=== PATIENT | female | born 1935 | race Caucasian/White ===

== ENCOUNTER 2018-03-17 11:01 | Outpatient (CLI) | payer MEDICARE | END 2018-03-17 11:02 | disposition home or self-care (01) | LOC: BICMAMMO 11:01 | PROVIDERS: ATTEND Family Medicine | DX: Z12.31 Encounter for screening mammogram for malignant neoplasm of breast (principal); Z85.3 Personal history of malignant neoplasm of breast; Z80.3 Family history of malignant neoplasm of breast | CPT/HCPCS: 77063; 77067 ==

== ENCOUNTER 2018-10-15 10:29 | Inpatient (IN) | payer MEDICARE ==
[2018-10-15 11:09] LABS: #Basophils 0.2 thou/uL (0.0-0.2); #Eosinphils 0.2 thou/uL (0.0-0.7); #Monocytes 0.3 thou/uL (0.11-0.59); #Neutrophils 9.1 thou/uL (1.40-6.50); %Basophils 2.3 % (0.0-1.0); %Eosinophils 1.5 % (0.0-10.0); %Lymphocytes 8.9 % (21.0-51.0); %Monocytes 2.9 % (0.0-10.0); %Neutrophils 84.4 % (42.0-75.0); Hemoglobin 14.1 g/dL (12.0-16.0); Mean Corpuscular HGB CONC 31.7 g/dL (32.0-36.0); Mean Corpuscular Hemoglobin 30.1 pg (27.0-31.0); Mean Corpuscular Volume 94.9 fL (78.0-98.0); Mean Platelet Volume 8.5 fL (7.4-10.4); Platelet Count 317 thou/uL (130-400); RBC Distribution Width 19.5 % (11.5-14.5); Red Blood Cell (RBC) Count 4.68 mill/uL (4.20-5.40); White Blood Cell (WBC) Count 10.7 thou/uL (4.8-10.8)
--- NOTE | 2018-10-15 11:31 | RAD ---
PORTABLE CHEST 1 VIEW: Date: 10/15/18 Time: 1001 hours HISTORY: Weakness, altered mental status. FINDINGS/IMPRESSION: Comparison made with exam of 01/29/15. The heart is enlarged. There is mild pulmonary vascular congestion. No lobar consolidation, pneumotho races, or large effusions are seen. There are surgical clips in the right lower chest and the left ax illa/lateral chest wall. POS: OFF
[2018-10-15 11:33] LABS: ALT (SGPT) 13 U/L (8-55); AST (SGOT) 22 U/L (5-34); Alkaline Phosphatase 112 U/L (40-150); Anion Gap 15 mmol/L (10-20); BUN (Urea Nitrogen) 14 mg/dL (9.8-20.1); Bilirubin, Total 1.2 mg/dL (0.2-1.2); CK (CPK) 66 U/L (29-168); Calc. Creatinine Clearance 0 mL/min (70-130); Calcium 9.2 mg/dL (7.8-10.44); Carbon Dioxide 28 mmol/L (23-31); Chloride 100 mmol/L (98-107); Estimated GFR-MDRD 73; Globulin 3.2 g/dL (2.4-3.5); Glucose 137 mg/dL (83-110); Lipase 18 U/L (8-78); Potassium 4.7 mmol/L (3.5-5.1); Protein, Total 7.2 g/dL (6.0-8.3); Sodium 138 mmol/L (136-145)
--- NOTE | 2018-10-15 12:08 | CT ---
CT BRAIN WITHOUT CONTRAST: Date: 10/15/18 HISTORY: Generalized weakness, altered mental status. FINDINGS: Comparison made with exam of 01/29/15. Changes of cortical atrophy, chronic small vessel ischemic disease, and encephalomalacia due to old l arge left MCA infarction are again seen. The ventricular size is stable and the basilar cisterns are patent. No evidence of acute infarct, hemorrhage, midline shift, or abnormal extra-axial fluid collections ar e seen. The bony calvarium is intact. The visualized paranasal sinuses and mastoid air cells are well aerated. IMPRESSION: No CT evidence of acute intracranial process. POS: OFF
[2018-10-15 12:27] LABS: Bilirubin Small (Negative); Blood, Urine Negative (Negative); Clarity CLOUDY (Clear); Glucose, Urine (Dipstick) Negative (Negative); Leukocyte Moderate (Negative); Nitrite Negative (Negative); Protein, Urine (Dipstick) Trace mg/dL (Neg-Trace); Specific Gravity, Urine 1.022 (1.002-1.036)
[2018-10-15 12:29] LABS: Bacteria/HPF 2+ HPF (None Seen); Hyaline Casts/LPF 4-6 HYALINE CAST LPF (0-3 Hyaline); Pathc Cast-AUWi Flag 0.95 (0-2.49)
[2018-10-15 12:45] LABS: Crystals/HPF None Seen HPF (Negative); RBC/HPF 0-3 HPF (0-3)
[2018-10-15] MEDS ORDERED: cefTRIAXone\\ROCEPHIN 1 GM VIAL ONE (14:13)
[2018-10-15] MEDS ORDERED: Bisacodyl 5 MG TAB PO PRN (16:07)
[2018-10-15] MEDS ORDERED: Acetaminophen 650 MG Suppository PR PRN (16:07)
--- NOTE | 2018-10-15 17:12 | HP ---
PRIMARY CARE PROVIDER: Terrell Mcmanus DO. CHIEF COMPLAINT: Altered mental status. HISTORY OF PRESENT ILLNESS: Ms. Valdes is a pleasant 82-year-old lady, who was seen at [facility] on October 15, 2018. She is a poor historian. Most of the time, she kept saying no to every question. She does report having pain in the lower abdomen that has been going on for a few days, but is unable to describe it further. She also reportedly had nausea and vomiting. She reportedly vomited and slumped down to the floor after losing consciousness this morning. The patient reports that she did not fall and was able to lower herself to the floor. As mentioned earlier, the patient is a poor historian. Collateral history was obtained from review of medical records and discussion with emergency room physician. REVIEW OF SYSTEMS: Could not be completed because of the patient's confused status. PAST MEDICAL HISTORY: Dyslipidemia, breast cancer, stroke, and hypertension. PAST SURGICAL HISTORY: Right lumpectomy. SOCIAL HISTORY: No history of tobacco use, alcohol use, or recreational drug use. CODE STATUS: Could not be elicited. FAMILY HISTORY: Could not obtain. ALLERGIES: ESTROGENS, NOVOCAIN, PENICILLIN, PROCAINE, AND SHELLFISH CONTAINING PRODUCTS. CURRENT MEDICATIONS: 1. Metoprolol succinate 75 mg daily. 2. Fluoxetine 20 mg daily. 3. Lipitor 20 mg daily. 4. Warfarin as directed. 5. Tramadol as needed. PHYSICAL EXAMINATION: GENERAL: On examination, Ms. Valdes is awake and alert, in mild distress. VITAL SIGNS: Blood pressure is 126/102, pulse 116, respiratory rate 20, and oxygen saturation 96% on room air. She is afebrile. EYES: No scleral icterus. No conjunctival pallor. ENT: Moist mucosal membranes. No oropharyngeal erythema or exudates. NECK: Supple, nontender, trachea is midline. RESPIRATORY: Accessory muscles of breathing are not active. Chest wall movements are symmetric bilaterally. Lungs are clear to auscultation without wheeze, rhonchi, or crepitations. CARDIOVASCULAR: S1 and S2 are heard, irregular and tachycardic. Peripheral pulses palpable. No carotid bruit. No pericardial rub. ABDOMEN: Soft, nontender, bowel sounds heard. No hepatomegaly. No splenomegaly. NEUROLOGIC: Full neurologic examination was not possible secondary to the patient's noncooperation. Pupils are equal and reactive to light. No facial droop. The patient is moving all 4 extremities. Deep tendon reflexes are 2+, plantar reflexes downgoing bilaterally. MUSCULOSKELETAL: The patient is moving all 4 extremities. SKIN: No rashes or subcutaneous nodules. LYMPHATIC: No cervical lymphadenopathy. PSYCHIATRIC: Unable to assess mood, affect or orientation to person, place, or time. LABORATORY DATA: Ms. Valdes's labs and investigations were reviewed. I reviewed her electrocardiogram, which shows atrial fibrillation with rapid ventricular response, no ST changes to suggest an acute coronary syndrome. I also reviewed her chest x-ray, which does not show any pulmonary infiltrates. Noncontrast CT scan of the brain did not show any acute intracranial process. She has normal white count, normal hemoglobin, normal platelet count, unremarkable comprehensive metabolic profile, and normal troponin-I. Urinalysis is positive for bilirubin and moderate amount of leukocyte esterase. ASSESSMENT AND PLAN: Ms. Valdes is a pleasant 82-year-old lady, who was seen at [facility] on October 15, 2018. Her problem list includes: 1. Acute metabolic encephalopathy: Ms. Valdes is presenting with acute metabolic encephalopathy, likely secondary to urinary tract infection. However, stroke cannot be ruled out at this time, especially given her difficulty with speech. She will be admitted to the hospital for further management. 2. Urinary tract infection: She has received a dose of ceftriaxone in the emergency room, which I will continue. We will await urine cultures. 3. Atrial fibrillation: The patient is in atrial fibrillation. It is unclear if she has a past medical history of atrial fibrillation. We will obtain records from primary care provider to look into the same. INR has not been checked today. We will check INR and manage warfarin. 4. Dyslipidemia: We will continue statin. 5. We will also initiate stroke workup including MRI of the brain, 2D echocardiogram and carotid Dopplers. We will consult Neurology Service for opinion and help with management. 6. Hypertension: We will resume home medications, monitor vital signs and titrate antihypertensives as needed. Many thanks for allowing me to participate in your patient's care. Please feel free to contact me with any questions or concerns. LEVEL OF RISK: High. LEVEL OF COMPLEXITY: High. Job ID: [id number] MTDD
--- NOTE | 2018-10-15 18:01 | ULT ---
CAROTID DUPLEX ULTRASOUND: 10/15/18 INDICATION: History of stroke. FINDINGS: There are mild atherosclerotic calcifications seen diffusely within the common carotid arteries and p roximal internal carotid arteries. The velocities within the common carotid and internal carotid arteries were hemodynamically within n ormal limits. Peak systolic velocity within the right CCA was 72 cm/s and left CCA 64.1 cm/s. Peak systolic velocity within the right ICA was 52.3 cm/s and left was 52.5 cm/s. Right IC/CC ratio is 0 .73 and left is 0.82. Antegrade flow is seen within both vertebral arteries. IMPRESSION: 1. No hemodynamically significant stenosis demonstrated. 2. Mild partially calcified atherosclerotic plaque seen involving the internal carotid arteries and common carotid arteries. POS: STEPHANY
[2018-10-15 18:05] LABS: INR-International Normal Ratio 1.9; Prothrombin Time 22.2 SEC (12.0-14.7)
[2018-10-15 22:51] VITALS: BMI 24.2
[2018-10-16 05:29] LABS: #Basophils 0.2 thou/uL (0.0-0.2); #Eosinphils 0.2 thou/uL (0.0-0.7); #Lymphocytes 1.5 thou/uL (1.20-3.40); #Monocytes 0.5 thou/uL (0.11-0.59); #Neutrophils 8.5 thou/uL (1.40-6.50); %Basophils 2.2 % (0.0-1.0); %Eosinophils 1.4 % (0.0-10.0); %Lymphocytes 13.8 % (21.0-51.0); %Monocytes 4.7 % (0.0-10.0); %Neutrophils 77.8 % (42.0-75.0); Hemoglobin 13.2 g/dL (12.0-16.0); Mean Corpuscular HGB CONC 31.8 g/dL (32.0-36.0); Mean Corpuscular Hemoglobin 30.7 pg (27.0-31.0); Mean Corpuscular Volume 96.5 fL (78.0-98.0); Mean Platelet Volume 8.5 fL (7.4-10.4); Platelet Count 286 thou/uL (130-400); RBC Distribution Width 19.4 % (11.5-14.5); Red Blood Cell (RBC) Count 4.29 mill/uL (4.20-5.40); White Blood Cell (WBC) Count 10.9 thou/uL (4.8-10.8)
[2018-10-16 05:33] LABS: Prothrombin Time 22.5 SEC (12.0-14.7)
[2018-10-16 05:48] LABS: Anion Gap 12 mmol/L (10-20); BUN (Urea Nitrogen) 11 mg/dL (9.8-20.1); Calc. Creatinine Clearance 58 mL/min (70-130); Calcium 9.1 mg/dL (7.8-10.44); Carbon Dioxide 27 mmol/L (23-31); Cardiac Risk 3.9 (Less than 4.5); Chloride 100 mmol/L (98-107); Cholesterol 159 mg/dl (< 200 Desired); Estimated GFR-MDRD 76; Glucose 97 mg/dL (83-110); HDL Cholesterol 41 mg/dL (>60 Neg Risk); LDL Cholesterol, Calculated 99 mg/dL; Potassium 4.1 mmol/L (3.5-5.1); Sodium 135 mmol/L (136-145); Triglycerides 97 mg/dL (Less than 150)
[2018-10-16] MEDS ORDERED: Enoxaparin Sodium 40 MG/0.4 ML SYRINGE SC SCH (09:00)
[2018-10-16] MEDS: Aspirin 81 mg Enteric Coated Tablet PO SCH (09:15)
--- NOTE | 2018-10-16 12:50 | PDOC.PN ---
- Subjective Encounter Start Date: 10/16/18 Encounter Start Time: 07:40 Pt seen for followup re: acute metabolic encephalopathy. Unable to answer questions, could not complete ROS. - Objective MAR Reviewed: Yes Vital Signs & Weight: Vital Signs (12 hours) Temp Pulse Pulse Pulse Pulse Resp BP 10/16/18 12:00 98.8 F 98 20 10/16/18 09:45 99 106 H 101 H 86/53 L 10/16/18 08:10 10/16/18 07:40 97.5 F L 93 18 10/16/18 03:46 97.9 F 100 18 BP BP BP BP Pulse Ox 10/16/18 12:00 111/66 94 L 10/16/18 09:45 85/52 L 97/63 10/16/18 08:10 94 L 10/16/18 07:40 127/62 94 L 10/16/18 03:46 106/65 95 Weight Weight 132 lb 8 oz I&O: 10/15/18 10/16/18 10/17/18 06:59 06:59 07:59 Intake Total 200 Balance 200 Result Diagrams: 10/16/18 05:06 10/16/18 05:06 EKG Reviewed by me: Yes (Tele: immanuel crawford) Phys Exam - Physical Examination Constitutional: NAD HEENT: moist MMs, sclera anicteric, oral pharynx no lesions, 2+ tonsils Neck: no nodes, no JVD, supple, full ROM Respiratory: clear to auscultation bilateral Cardiovascular: no rub, irregular S1, s2 Gastrointestinal: soft, non-tender, no distention, positive bowel sounds Neurological: moves all 4 limbs aphasia Psychiatric: normal affect Deviation from normal: Unable to assess orientation to person, place or time Dx/Plan (1) Acute metabolic encephalopathy Code(s): G93.41 - METABOLIC ENCEPHALOPATHY Status: Acute Comment: etiology unclear, ? secondary to UTI or stroke (2) Aphasia Code(s): R47.01 - APHASIA Status: Acute Comment: likely secondary to cva (3) CVA (cerebral vascular accident) Code(s): I63.9 - CEREBRAL INFARCTION, UNSPECIFIED Status: Acute Comment: workup in progress (4) Urinary tract infection Status: Acute Comment: continue ceftriaxone (5) Atrial fibrillation Code(s): I48.91 - UNSPECIFIED ATRIAL FIBRILLATION Status: Chronic Comment: INR therapeutic, rate-controlled - Plan continue antibiotics, PT/OT, out of bed/ambulate * . Review of Systems - Medications/Allergies Allergies/Adverse Reactions: Allergies Allergy/AdvReac Type Severity Reaction Status Date / Time Estrogens Allergy Verified 10/16/18 00:30 Horse/Equine Containing Allergy Verified 01/30/15 02:44 Products Penicillins Allergy Verified 01/30/15 02:44 procaine HCl [From Novocain] Allergy Verified 01/30/15 02:44 shellfish derived Allergy Verified 01/30/15 02:44 Medications: Current Medications Acetaminophen (Tylenol) 650 mg PO Q4H PRN PRN Reason: Headache/Fever/Mild Pain (1-3) Acetaminophen (Tylenol) 650 mg [place] Q4H PRN PRN Reason: Headache/Fever/Mild Pain (1-3) Aspirin (Ecotrin) 81 mg PO DAILY [facility] Last Admin: 10/16/18 09:15 Dose: 81 mg Bisacodyl (Dulcolax) 10 mg PO DAILYPRN PRN PRN Reason: Constipation Ceftriaxone Sodium 1 gm/ (Sodium Chloride) 100 mls @ 200 mls/hr IVPB 1400 [facility] Miscellaneous Medication (Pharmacy To Dose) 1 each PO PRN PRN PRN Reason: Pharmacy to dose Sodium Chloride (Flush - Normal Saline) 10 ml IVF PRN PRN PRN Reason: Saline Flush
--- NOTE | 2018-10-16 13:05 | MRI ---
MRI OF THE BRAIN WITHOUT CONTRAST: HISTORY: The patient was found slumped on the floor at home covered in vomit. The patient has had a history o f a prior stroke. Evaluate for a new acute stroke. TECHNIQUE: Multiplanar, multisequence MR images were obtained in the brain without contrast. FINDINGS: There is a large area of encephalomalacia in the left MCA distribution from remote left MCA distribut ion infarction. Gliosis is seen surrounding this encephalomalacia. No restricted diffusion is seen on today's examination to suggest an acute infarction. There are scattered foci of high T2/FLAIR signal in the subcortical and periventricular white matter, likely secondary to small-vessel ischemic disease. There is no evidence of hydrocephalus, intracran ial hemorrhage, or extraaxial fluid collection. The expected flow voids are present at the skull bas e. The corpus callosum, pituitary, and craniocervical junction are unremarkable. The calvarium and overlying soft tissues are unremarkable. The visualized paranasal sinuses and mast oid air cells are well aerated. IMPRESSION: 1. No evidence of acute intracranial abnormality. 2. Extensive small-vessel ischemic disease and remote left middle cerebral artery distribution infar ction. POS: [facility]
--- NOTE | 2018-10-16 13:22 | CON ---
DATE OF CONSULTATION: 10/16/2018 CHIEF COMPLAINT: Altered mental status. HISTORY OF PRESENT ILLNESS: The patient was unable to give much history. She was not able to talk well. She sometimes tried to sign language with us and she was found to have some altered mental status and therefore is admitted, and at this time, the patient was complaining to us about knee pain and she has history apparently per the chart. The patient had altered mental status and was brought here. She also has pain in the abdomen, nausea, vomiting, and she reportedly vomited and slumped down to the floor after losing consciousness. The patient is unable to give any medical history. PREVIOUS MEDICAL HISTORY: The patient has hyperlipidemia and history of breast cancer and stroke 7 years ago with speech difficulty. PREVIOUS SURGICAL HISTORY: She had right breast lumpectomy. ALLERGIES: SHE IS ALLERGIC TO ESTROGENS AND EQUINE PRODUCTS. SHE IS ALSO ALLERGIC TO NOVOCAIN, PENICILLIN, AND SHELLFISH. MEDICATIONS: At home, she is on; 1. Metoprolol. 2. Fluoxetine. 3. Lipitor. 4. Coumadin. 5. Tramadol. FAMILY HISTORY: Unknown. REVIEW OF SYSTEMS: PULMONARY: Negative for cough or shortness of breath. GI: Positive for vomiting. NEUROLOGICAL: Positive for loss of consciousness and confusion and prior history of stroke. DERMATOLOGIC: Negative for any skin rash at this time. ENDOCRINE: Negative for diabetes. METABOLIC: Positive for hyperlipidemia. PSYCHIATRIC: Negative for any confusion or hallucinations. HEMATOLOGIC: Negative for bleeding diatheses. PHYSICAL EXAMINATION: VITAL SIGNS: Blood pressure 86/53 and 85/52 and 97/62 during orthostatic check. Pulse goes from 99 to 106 and temperature 98.8. GENERAL APPEARANCE: Thin built, well-nourished lady. CHEST: Clear vesicular breathing. CARDIOVASCULAR: S1 and S2 heard. No murmurs. ABDOMEN: Soft. NEUROLOGICAL: Higher intellectual function. She has a speech difficulty, but was oriented to time, place, and person. Able to follow all commands. Cranial nerves II through XII; normal extraocular movements. Pupils are 3 mm, reactive bilaterally. No facial asymmetry. Normal sensation of face. Normal hearing bilaterally. Tongue midline. No atrophy noted and she has elevation of the palate, which is normal. Motor exam; bulk normal. Tone normal. Strength 5/5 in upper and lower extremities in all muscle groups and muscle groups tested are iliopsoas, hamstrings, quadriceps, ankle dorsiflexion, plantar flexion, deltoid, biceps, triceps, wrist extension, flexion, finger extension and flexion bilaterally. Deep tendon reflexes were 2+ throughout. Sensory; normal sensation to touch. Cerebellar; normal [id number], [id number]. Gait, not tested. LABORATORY DATA: Her labs right now, white count 10.9, hemoglobin 13.2, hematocrit 41.3, and platelets 286. PT 22.5, INR 2.0. Chemistry; sodium 125, potassium 4.1, chloride 100, bicarb 27, BUN 11, and creatinine 0.74. AST 22, ALT 13, and alkaline phosphatase 112. CPK 66. Triglycerides 97, cholesterol 159, LDL cholesterol 99, and HDL 41. Heart disease risk ratio 3.9. IMPRESSION AND PLAN: The patient is an 82-year-old lady with prior stroke and her history is that of loss of consciousness, vomiting, and she does seem to have mild orthostatic hypotension as well, and she has speech difficulty and intends to use sign language sometimes whether this is chronic. It is unclear based on the medical chart history. The patient is unable to give full medical history. Her neurological examination other than speech deficit is normal. At this time, I will request an MRI of the brain to see if we have any further concern for acute stroke. I am hoping she can receive further speech therapy and evaluation to help with her deficits. I will follow up the patient tomorrow. Job ID: [id number]
[2018-10-16] MEDS: Acetaminophen 325 MG TAB PO PRN (14:20)
[2018-10-16] MEDS: cefTRIAXone\\ROCEPHIN 1 GM in Sodium Chloride 0.9% 100 ML IVPB SCH (14:22)
[2018-10-16] MEDS ORDERED: Warfarin Sodium 3 MG TAB PO SCH (17:00)
[2018-10-17] MEDS: Acetaminophen 325 MG TAB PO PRN ×2 (05:19→10:01)
[2018-10-17 06:13] LABS: INR-International Normal Ratio 1.5; Prothrombin Time 18.1 SEC (12.0-14.7)
[2018-10-17 06:25] LABS: Band 2 % (5-11); Hemoglobin 13.5 g/dL (12.0-16.0); Lymphocytes 22 % (21-51); MDiff Complete? YES; Mean Corpuscular HGB CONC 31.1 g/dL (32.0-36.0); Mean Corpuscular Volume 96.7 fL (78.0-98.0); Mean Platelet Volume 8.7 fL (7.4-10.4); Monocytes 4 % (0-10); Neutrophil 70 % (42-75); Platelet Count 273 thou/uL (130-400); Platelet Morphology Comment Appears Adequate; RBC Distribution Width 19.3 % (11.5-14.5); Red Blood Cell (RBC) Count 4.49 mill/uL (4.20-5.40); White Blood Cell (WBC) Count 8.6 thou/uL (4.8-10.8)
[2018-10-17 06:29] LABS: Anion Gap 11 mmol/L (10-20); BUN (Urea Nitrogen) 11 mg/dL (9.8-20.1); Calc. Creatinine Clearance 65 mL/min (70-130); Carbon Dioxide 28 mmol/L (23-31); Chloride 103 mmol/L (98-107); Estimated GFR-MDRD 88; Glucose 116 mg/dL (83-110); Potassium 3.8 mmol/L (3.5-5.1); Sodium 138 mmol/L (136-145)
[2018-10-17] MEDS: Aspirin 81 mg Enteric Coated Tablet PO SCH (10:00)
--- NOTE | 2018-10-17 11:22 | PRG ---
DATE OF SERVICE: 10/17/2018 CHIEF COMPLAINT: Altered mental status. INTERVAL HISTORY: Daughter was in the room today and she gave additional medical history. The patient had left MCA, CVA seven years ago and had continuing speech issues. Daughter's son has difficulty with speech and uses sign language and the patient learned sign language in the process since her speech was affected. Generally, she uses a walker at home when available. Daughters says she is close to her baseline today. CURRENT WORKUP: Her MRI of the brain was negative for an acute infarct, but she has extensive small-vessel ischemic disease and remote left MCA infarct. Echocardiogram showed left ventricular ejection fraction at 50% to 55%. Left atrium moderate to severely dilated and moderate to severe mitral regurgitation. She had severely thickened trileaflet aortic valve with decreased excursion, mild aortic stenosis, mild aortic regurgitation and moderate tricuspid regurgitation. LABORATORY WORKUP: White count 8.6, hemoglobin 13.5, hematocrit 43.4, platelet count 273. Coagulation 18.5 for PT, INR 1.5. Chemistry; sodium 138, potassium 3.8, chloride 103, bicarb 28, BUN 11, creatinine 0.65, glucose 116. Urinalysis was cloudy and she had moderate leukocyte esterase at the time of admission. Her urine culture final report shows 3 different organisms and possible contamination. PHYSICAL EXAMINATION: VITAL SIGNS: Blood pressure 159/74, pulse 109, temperature 97.8, and respiratory rate 14. GENERAL APPEARANCE: Thin-built, well-nourished lady, who is stable in the bed. Higher intellectual function. She is oriented to place and person, not to time. Cranial nerves, mild facial asymmetry on the right side. Motor examination; bulk normal tone, normal strength, 5/5 in upper and lower extremities. IMPRESSION: The patient is an 82-year-old lady with prior left middle cerebral artery, cerebrovascular accident, which occurred 7 years ago with residual speech deficit. She was found to have alteration of mental status and per daughter right now she is back to baseline. Her examination is essentially normal today except for mild aphasia and right-sided facial weakness. Her altered mental status is mostly resolved. She is currently on ceftriaxone. RECOMMENDATIONS: Please continue current plans for management of UTI. Please call Neurology if you have any further questions. Job ID: [id number]
[2018-10-17 12:14] VITALS: BP 114/71; TEMP 98.6
[2018-10-17] MEDS: cefTRIAXone\\ROCEPHIN 1 GM in Sodium Chloride 0.9% 100 ML IVPB SCH (14:25)
--- NOTE | 2018-10-18 01:27 | DIS ---
DATE OF ADMISSION: 10/15/2018 DATE OF DISCHARGE: 10/17/2018 PRIMARY CARE PROVIDER: Terrell Mcmanus, DISCHARGE DIAGNOSES: 1. Acute metabolic encephalopathy. 2. Urinary tract infection. CONDITION OF PATIENT ON THE DAY OF DISCHARGE: Stable. I assessed Ms. Valdes on the day of discharge. She denies any chest pain or shortness of breath. Vital signs are stable. S1 and S2 are heard, regular. Lungs are clear to auscultation bilaterally. CONSULTATIONS DURING THIS HOSPITALIZATION: Neurology, Dr. Loaiza. DISCHARGE MEDICATIONS: 1. Lipitor 20 mg at bedtime. 2. Prozac 20 mg daily. 3. Toprol-XL 75 mg daily. 4. Tramadol 50 mg 4 times a day as needed. 5. Warfarin as directed. 6. Macrobid 100 mg 2 times a day for 1 week. HOSPITAL COURSE: Ms. Valdes is a pleasant 82-year-old lady, who was admitted to [facility] for acute metabolic encephalopathy and suspected urinary tract infection on October 15, 2018. Please refer to my history and physical note dated October 15, 2018, for further details. MRI of the brain did not show any acute intracranial abnormality. She had extensive small-vessel ischemic disease and remote left middle cerebral artery distribution infarction. 2D echocardiogram showed left ventricular ejection fraction of 50% to 55%, moderate to severely dilated left atrium, [id number] mitral regurgitation, mild aortic stenosis, mild aortic regurgitation, and moderate tricuspid regurgitation. She had severely thickened trileaflet aortic valve with decreased excursion. She was seen by Neurology Service. She had initially presented with aphasia. It was subsequently found that this was a consequence of an old stroke. She received antibiotics for urinary tract infection. Final urine culture showed three or more different organisms indicating probable contamination from improper collection or delayed transport to laboratory. While in the hospital, she received ceftriaxone. She is being discharged home on nitrofurantoin. Her INR on the day of discharge is 1.5. Her electrolytes are normal. Creatinine is normal. White count is 8600, hemoglobin 13.5, and platelet count 273,000. During this hospitalization, she had fasting lipid profile showing triglycerides 97, cholesterol 159, LDL cholesterol 99, and HDL cholesterol 41. Many thanks for allowing me to participate in your patient's care. Please feel free to contact me with any questions or concerns. She is advised to follow up with her primary care provider for adjustment of her warfarin dosing. DISCHARGE DESTINATION: Home. TIME SPENT: Total amount of time spent coordinating this discharge: 32 minutes. Job ID: [id number]
== END 2018-10-17 16:03 | disposition home or self-care (01) | DRG 689 ==
LOC: ERS 10:29 → 2SE 18:41
PROVIDERS: ADMIT Internal Medicine; ATTEND Internal Medicine
DX: N39.0 Urinary tract infection, site not specified (principal); G93.41 Metabolic encephalopathy; I10 Essential (primary) hypertension; E78.5 Hyperlipidemia, unspecified; Z85.3 Personal history of malignant neoplasm of breast; I48.91 Unspecified atrial fibrillation; I69.320 Aphasia following cerebral infarction
CPT/HCPCS: 36415; 36416; 70450; 70551; 71045; 80048; 80053; 80061; 81003; 81015; 82550; 83690; 84484; 85025; 85610; 87086; 90471; 90662; 93005; 93306; 93880; 96365; G0008; J0696; J1650; J7050

== ENCOUNTER 2019-05-17 11:57 | Inpatient (IN) | payer MEDICARE ==
[2019-05-17] MEDS ORDERED: Morphine 2 MG/ML SYRINGE ONE ×2 (12:26→13:53)
--- NOTE | 2019-05-17 12:48 | CT ---
CT head noncontrast HISTORY: Fall. Head injury. COMPARISON: 10/15/2018. FINDINGS: There is no evidence of acute intracranial hemorrhage or infarct. Physiologic calcification at the basal ganglia is stable. Large area of encephalomalacia of the left cerebral hemisphere is unchanged and consistent with a large left MCA infarct. There is no mass effect or shift of midline s tructures. Calcification in the arterial structures of the brain base. IMPRESSION: Chronic-type findings are stable. No acute traumatic injury is demonstrated.
--- NOTE | 2019-05-17 12:51 | CT ---
CT cervical spine noncontrast HISTORY: Fall. Neck injury. FINDINGS: Vertebral body heights are maintained. There is 3 mm spondylolisthesis at the C6-7 level wh ere disc space narrowing is also most pronounced. Minimal degenerative spondylolisthesis at the C4-5 and C5-6 levels. No acute fracture or dislocation. Prominent osteophytosis throughout the verteb ral bodies and facets. There is calcification within the carotid arteries. IMPRESSION: No acute osseous abnormalities are demonstrated. Prominent degenerative changes cervical spine. Atherosclerosis.
--- NOTE | 2019-05-17 12:57 | RAD ---
Chest one view HISTORY: Fall. COMPARISON: 10/15/2018. FINDINGS: Cardiac silhouette is magnified and enlarged. Pulmonary vasculature is engorged. Widespread reticulonodular interstitial prominence is greater than on the prior exam. Mediastinum is midline with aortic calcification. No evidence of pneumothorax. Metallic clips over the left axilla. IMPRESSION: Pulmonary vascular congestion/edema is more pronounced than on the most recent exam from October 2018. Cardiomegaly. Atherosclerosis.
[2019-05-17 13:12] LABS: Hemoglobin 13.2 g/dL (12.0-16.0); Mean Corpuscular HGB CONC 32.5 g/dL (32.0-36.0); Platelet Count 366 thou/uL (130-400); RBC Distribution Width 16.2 % (11.5-14.5); Red Blood Cell (RBC) Count 4.01 mill/uL (4.20-5.40); White Blood Cell (WBC) Count 27.6 thou/uL (4.8-10.8)
--- NOTE | 2019-05-17 13:17 | RAD ---
LEFT HIP 2 VIEWS: Date: 05/17/19 HISTORY: Fall, left hip pain. FINDINGS/IMPRESSION: There is a comminuted fracture involving the intertrochanteric region of the left proximal femur with associated foreshortening. There is medial displacement of the fracture fragment involving the lesse r trochanter. POS: OFF
[2019-05-17 13:24] LABS: PTT 39.3 SEC (22.9-36.1); Prothrombin Time 30.9 SEC (12.0-14.7)
[2019-05-17 13:35] LABS: Band 5 % (5-11); Hypersemented Neutrophil SLIGHT; Lymphocytes 2 % (21-51); MDiff Complete? YES; Metamyelocyte 1 % (0-0); Neutrophil 91 % (42-75); Platelet Morphology Comment Appears Adequate; RBC Morphology Normal; Reactive Lymphocytes 1 % (0-10)
[2019-05-17 13:36] LABS: ALT (SGPT) 13 U/L (8-55); AST (SGOT) 29 U/L (5-34); Albumin 4.1 g/dL (3.4-4.8); Alkaline Phosphatase 97 U/L (40-110); Anion Gap 17 mmol/L (10-20); BUN (Urea Nitrogen) 20 mg/dL (9.8-20.1); Bilirubin, Total 1.5 mg/dL (0.2-1.2); CK (CPK) 143 U/L (29-168); Calc. Creatinine Clearance 0 mL/min (70-130); Calcium 8.5 mg/dL (7.8-10.44); Carbon Dioxide 22 mmol/L (23-31); Chloride 103 mmol/L (98-107); Estimated GFR-MDRD 77; Globulin 3.1 g/dL (2.4-3.5); Glucose 167 mg/dL (83-110); Potassium 4.6 mmol/L (3.5-5.1); Protein, Total 7.2 g/dL (6.0-8.3); Sodium 137 mmol/L (136-145)
[2019-05-17] MEDS ORDERED: Diltiazem 125 MG/25 ML ONE (15:33)
--- NOTE | 2019-05-17 18:29 | HP ---
REQUESTING PHYSICIAN: Dr. Carter. CONSULTATIONS: Orthopedics, Dr. Reinoso. HISTORY OF PRESENT ILLNESS: The patient is an 83-year-old woman, who presented to the emergency department after having a ground level fall this morning. She reports trying to go to the bathroom when she slipped and fell. The patient lives at home with her elderly , who is legally blind. They were eventually able to get help to bring her to the emergency department, where she underwent evaluation and examination, was noted to have a left hip fracture which time we were asked to evaluate the patient for admission and obtain Orthopedic consultation. The patient and are poor historians. The patient had a hospital admission in October, and we were able to use that to verify information. ALLERGIES: ESTROGENS, NOVOCAIN, PENICILLIN, PROCAINE, SHELLFISH CONTAINING PRODUCTS. CURRENT MEDICATIONS: 1. Metoprolol. 2. Fluoxetine. 3. Coumadin. 4. Tramadol. 5. Celebrex. PAST MEDICAL HISTORY: Dyslipidemia, breast cancer, CVA, hypertension, atrial fibrillation, metabolic encephalopathy, frequent urinary tract infections. PAST SURGICAL HISTORY: Right breast lumpectomy. SOCIAL HISTORY: Lives at home with spouse. Denies drug, tobacco, or alcohol use. REVIEW OF SYSTEMS: Ten-point review of systems is negative as otherwise stated. Again, the patient and are poor historians, and most of her review was from prior history and physical from October. PHYSICAL EXAMINATION: VITAL SIGNS: Blood pressure 149/84, heart rate 90, respirations 16, oxygen saturation 98% on 3 L via nasal cannula, and temperature 98.0. GENERAL: The patient appears comfortable, resting in ER bed. She is able to sit up. She is awake, conversant. She is oriented x2. She is unclear of the date and time, but does know her name and her current location. Her Deepti Coma Scale is 15 HEENT: Head is normocephalic and atraumatic. The patient does have some tenderness to palpation to her forehead. There is currently no ecchymosis. Eyes; pupils are reactive. Extraocular motion is intact. Ears are atraumatic without discharge. Nose is atraumatic without discharge. Oropharynx is clear. NECK: Nontender. Trachea is midline. No JVD. CHEST: Clear to auscultation with moderate inspiratory and expiratory effort. HEART: Regular rate and rhythm. ABDOMEN: Soft, flat, nontender with active bowel sounds. PELVIS: Stable with tenderness to palpation to her left hip consistent with her fracture. EXTREMITIES: Neurovascularly intact x4. BACK: By report is atraumatic and nontender. LABORATORY FINDINGS: White blood cell count 27.6, hemoglobin 13.2, hematocrit 40.7, platelets 366. Sodium 137, potassium 4.6, chloride 103, CO2 of 22, BUN 20, creatinine 0.73, glucose 167. Total bilirubin 1.5. Remainder of her LFTs are unremarkable. Troponin is less than 0.010. BNP 206. PT 31, INR 3.0, PTT 39. RADIOGRAPHIC REPORTS: CT of the brain without contrast, there is no acute traumatic injury. CT of the C-spine without contrast, there are no acute osseous abnormalities. AP chest x-ray shows pulmonary vascular congestion/edema, is more pronounced than on the most recent exam from October. Views of the left hip shows a comminuted fracture involving the intertrochanteric region of the left proximal femur. ASSESSMENT: 1. Status post ground level fall. 2. Left intertrochanteric femur fracture. 3. History of coronary artery disease. 4. Atrial fibrillation. 5. Cerebrovascular accident, on warfarin. 6. Leukocytosis, cause unclear. 7. Mild congestive heart failure. PLAN: Plan will be to admit the patient to the surgical floor for pain control, pulmonary toilet, gastritis and mechanical VTE prophylaxis. The patient will receive one dose of Lasix. We will also check urinalysis to evaluate for possible cause of her leukocytosis. The patient will also receive 5 mg of vitamin K. We will hold her Coumadin and recheck all her labs in the morning. The patient was evaluated in the emergency department with Dr. Link. Job ID: [id number]
[2019-05-17 19:00] LABS: Bilirubin Negative (Negative); Blood, Urine Negative (Negative); Clarity Clear (Clear); Glucose, Urine (Dipstick) Normal (Negative); Leukocyte Negative Leu/uL (Negative); Nitrite Negative (Negative); Protein, Urine (Dipstick) 10 mg/dL (Neg-Trace)
[2019-05-17] MEDS ORDERED: Diltiazem 125 MG in Sodium Chloride 0.9% 100 ML IVPB SCH (20:31)
[2019-05-17] MEDS ORDERED: Ondansetron PF 4 MG/2 ML Vial IVP PRN (20:31)
[2019-05-17] MEDS ORDERED: Ondansetron ODT 4 MG TAB PO PRN (20:31)
[2019-05-17] MEDS ORDERED: Dextrose 5% in Water 1,000 ML IV PRN (20:31)
[2019-05-17] MEDS ORDERED: Dextrose 50% Abboject 50 ML SYRINGE SLOW IVP PRN (20:31)
[2019-05-17] MEDS ORDERED: Morphine 2 MG/ML SYRINGE SLOW IVP PRN (20:31)
[2019-05-17] MEDS ORDERED: Cyclobenzaprine 10 MG TAB PO PRN (20:31)
[2019-05-17] MEDS ORDERED: hydrALAZINE 20 MG/ML VIAL SLOW IVP PRN (20:31)
[2019-05-17] MEDS ORDERED: Phytonadione 10 MG/ML AMP SLOW IVP SCH (21:00)
[2019-05-17] MEDS: Famotidine/PF 20 mg/2ml Vial SLOW IVP SCH (22:25)
[2019-05-17] MEDS: cefTRIAXone\\ROCEPHIN 1 GM in Sodium Chloride 0.9% 100 ML IVPB SCH (22:25)
[2019-05-17] MEDS: traMADol HCl 50 MG TAB PO PRN (22:26)
--- NOTE | 2019-05-17 23:34 | PRG ---
DATE OF SERVICE: 05/17/2019 SUBJECTIVE: The patient was seen this evening during evening rounds shortly after she was transported from the emergency department to the telemetry floor. On my evaluation, the patient was having some pain to the left-sided hip area. She reported that they had just moved her into her bed, has not received pain control, but nursing was working on it. She is to go to the OR tomorrow with Orthopedic Surgery for fixation of her left hip fracture. Had received diltiazem in the emergency department to control her atrial fibrillation. OBJECTIVE: GENERAL: Well-appearing elderly female, lying in bed, with some mild distress. PULMONARY: Equal chest rise and fall. Clear breath sounds bilaterally. No signs of acute respiratory distress. CARDIAC: Regular rate and rhythm. No murmurs, gallops or rubs. GI: Abdomen is soft, nontender, and nondistended. EXTREMITIES: 2+ pulses in all extremities. No significant swelling noted. Gross motor and sensation are intact. Left-sided hip tenderness. NEUROLOGIC: GCS is 15. ASSESSMENT: 1. Status post mechanical fall from standing. 2. Left intertrochanteric femur fracture. 3. Leukocytosis. 4. History of coronary artery disease, atrial fibrillation, cerebrovascular accident on warfarin, mild congestive heart failure, and dementia. PLAN: Continue current diet and pain medications. We will review the patient's med rec and restart her home medications as indicated. We will continue to hold warfarin. The patient takes metoprolol at home, we will restart that tonight as well. Repeat INR tomorrow. Plan to go to the OR with Orthopedic Surgery. She will be n.p.o. after midnight with normal saline at 70 an hour. She will likely need discharge to a facility. Acute rehab screen has been placed. Job ID: [id number]
--- NOTE | 2019-05-17 23:39 | CON ---
DATE OF CONSULTATION: 05/17/2019 CHIEF COMPLAINT: Left hip pain. HISTORY OF PRESENT ILLNESS: Ms. Valdes is an 83-year-old female, who fell at home. The patient lost her balance. She has dementia and does not relate how this happened very well. Her is at the bedside. They live independently. She does use a walker. She landed on her left side. She was unable to ambulate. She was taken to the emergency department by EMS. X-rays demonstrated left intertrochanteric femur fracture. Orthopedics was consulted regarding this injury. The patient has plans to be admitted by the General Surgery Trauma Service. ALLERGIES: ESTROGEN, NOVOCAIN, PENICILLIN, PROCAINE, SHELLFISH CONTAINING PRODUCTS. PAST MEDICAL HISTORY: Hyperlipidemia, history of breast cancer, history of CVA, history of hypertension and dementia. PAST SURGICAL HISTORY: Breast lumpectomy. SOCIAL HISTORY: The patient has a negative history of tobacco, alcohol, or drug use. MEDICATIONS: Include: 1. Metoprolol. 2. Fluoxetine. 3. Lipitor. 4. Warfarin. 5. Tramadol. IMAGING: X-rays of the pelvis and left hip demonstrate an intertrochanteric femur fracture with displacement. PHYSICAL EXAMINATION: VITAL SIGNS: Stable. The patient is normotensive. She is 98% on room air. GENERAL: She is lying supine, alert but somewhat disoriented. She does not answer questions appropriately. HEENT: Normocephalic, atraumatic. RESPIRATORY: Breathing comfortably. ABDOMEN: Soft, nontender, and nondistended. MUSCULOSKELETAL: The patient's left leg is somewhat shortened and swollen at the thigh. She has intact sensation distally in the foot. Palpable dorsalis pedis pulse. No laceration. No obvious ecchymosis. EXTREMITIES: Upper extremities are atraumatic. IMPRESSION: Left intertrochanteric femur fracture in an elderly female. PLAN: The patient will need to be admitted to the hospital. She will need medical optimization for possible surgical intervention. We will plan for surgery tomorrow if her INR is corrected below 2.0. She will need cardiac monitoring for her atrial fibrillation. She will likely need placement to a facility for rehabilitation. She will be n.p.o. at midnight. She will have pain control, DVT prophylaxis, and antibiotic prophylaxis. Job ID: [id number]
[2019-05-17] MEDS ORDERED: Metoprolol Tartrate 5 MG/5 ML VIAL IVP PRN (23:53)
[2019-05-17] MEDS ORDERED: Sodium Chloride 0.9% 1,000 ML IV SCH (23:55)
[2019-05-17] MEDS ORDERED: Acetaminophen 325 MG TAB PO SCH (23:59)
[2019-05-18] MEDS: Sodium Chloride 0.9% 1,000 ML IV SCH ×2 (00:08→18:11)
[2019-05-18] MEDS: Acetaminophen 1,000 MG in Premix Bag 1 BAG IVPB SCH ×4 (00:11→18:11)
[2019-05-18 04:41] VITALS: BMI 24.0
[2019-05-18 05:10] LABS: Prothrombin Time 22.2 SEC (12.0-14.7)
[2019-05-18 05:13] LABS: #Basophils 0.2 thou/uL (0.0-0.2); #Eosinphils 0.2 thou/uL (0.0-0.7); #Lymphocytes 1.1 thou/uL (1.20-3.40); #Monocytes 0.5 thou/uL (0.11-0.59); #Neutrophils 14.6 thou/uL (1.40-6.50); %Eosinophils 0.9 % (0.0-10.0); %Lymphocytes 6.9 % (21.0-51.0); %Monocytes 2.9 % (0.0-10.0); %Neutrophils 88.2 % (42.0-75.0); Hemoglobin 11.4 g/dL (12.0-16.0); Mean Corpuscular HGB CONC 32.8 g/dL (32.0-36.0); Mean Corpuscular Hemoglobin 33.2 pg (27.0-31.0); Mean Platelet Volume 8.1 fL (7.4-10.4); Platelet Count 266 thou/uL (130-400); RBC Distribution Width 16.1 % (11.5-14.5); Red Blood Cell (RBC) Count 3.44 mill/uL (4.20-5.40); White Blood Cell (WBC) Count 16.5 thou/uL (4.8-10.8)
[2019-05-18 05:26] LABS: Anion Gap 12 mmol/L (10-20); BUN (Urea Nitrogen) 15 mg/dL (9.8-20.1); Calc. Creatinine Clearance 65 mL/min (70-130); Calcium 8.2 mg/dL (7.8-10.44); Carbon Dioxide 26 mmol/L (23-31); Chloride 102 mmol/L (98-107); Estimated GFR-MDRD 83; Glucose 129 mg/dL (83-110); Magnesium 1.9 mg/dL (1.6-2.6); Phosphorus 2.8 mg/dL (2.3-4.7); Potassium 4.2 mmol/L (3.5-5.1); Sodium 136 mmol/L (136-145)
[2019-05-18] MEDS: FLUoxetine HCl 20 MG CAP PO SCH (09:08)
[2019-05-18] MEDS: Famotidine/PF 20 mg/2ml Vial SLOW IVP SCH ×2 (09:08→21:23)
[2019-05-18] MEDS ORDERED: Hydrocortisone Sod Succ/PF 500 mg/4 ml Vial SLOW IVP SCH (10:45)
[2019-05-18] MEDS ORDERED: Hydrocortisone Sod Succ/PF 100 mg/2 ml Vial IVP SCH (10:45)
--- NOTE | 2019-05-18 11:57 | PRG ---
DATE OF SERVICE: 05/18/2019 SUBJECTIVE: The patient is hospital day #2, status post ground level fall which she sustained a left intertrochanteric femur fracture. The patient has coronary artery disease, atrial fibrillation, and history of CVA. She is on warfarin yesterday in the emergency department. She was given 5 mg of vitamin K and her warfarin was held this morning. Her INR was down to 2.0. She will be able to undergo surgery. The patient was n.p.o. after midnight. This morning, she stated that her pain was controlled overnight. Her atrial fibrillation had 2 episodes of rapid ventricular response that were treated with diltiazem in the emergency department and metoprolol on telemetry last night. She is otherwise doing well. OBJECTIVE: VITAL SIGNS: Temperature is 98.1, heart rate 97, blood pressure 96/55, respirations 17, oxygen saturations 95% on 3 L via nasal cannula. GENERAL: The patient is resting comfortably. She is awake, conversant, appears at baseline. RESPIRATIONS: Clear and equal bilaterally. HEART: Irregular consistent with her atrial fibrillation with a slightly tachy rate. ABDOMEN: Soft, flat, nontender with active bowel sounds. EXTREMITIES: Neurovascularly intact x4. LABORATORY FINDINGS: White blood cell count 16.5, hemoglobin 11.4, hematocrit 34.8, platelets 266. Sodium 136, potassium 4.2, chloride 102, CO2 of 26, BUN 15, creatinine 0.68, glucose 129, magnesium 1.9, phosphorus 2.8, cortisols 9.90. PT 22, INR 2.0, PTT 43. IMAGING STUDIES: There are no radiographs reviewed this morning. ASSESSMENT AND PLAN: 1. Status post fall from standing. 2. Left intertrochanteric femur fracture, awaiting surgery. 3. Leukocytosis, improved. 4. Acute adrenal insufficiency. 5. History of coronary artery disease, atrial fibrillation, cerebrovascular accident on warfarin. 6. History of mild congestive heart failure. 7. Dementia. Plan will be to continue supportive care. She was given 100 mg of hydrocortisone this morning. She will have 25 mg every 6 hours. The patient is planned to go to the operating room with Orthopedic postoperatively. We will begin physical and occupational therapy and discuss placement. Job ID: [id number]
[2019-05-18] MEDS ORDERED: Clindamycin/D5W 900 MG in Premix Bag 1 BAG IVPB SCH ×2 (14:00→22:00)
[2019-05-18] MEDS ORDERED: Clindamycin/D5W 900 mg/50 ml Premix Bag ONE (14:05)
[2019-05-18] MEDS ORDERED: Fentanyl 100 MCG/2 ML VIAL ONE (14:48)
[2019-05-18] MEDS ORDERED: Diltiazem HCl 125 MG, Admixture Fee 1 EACH in Sodium Chloride 0.9% 100 ML IVPB SCH (15:00)
--- NOTE | 2019-05-18 15:55 | RAD ---
Left hip 2 views: HISTORY: ORIF left hip FINDINGS: 2 spot fluoroscopic intraoperative images of the left hip demonstrate interval reduction and internal fixation of the intertrochanteric fracture since the previous day's exam. The displaced lesser trochanteric fracture fragment is unchanged.
[2019-05-18] MEDS ORDERED: Promethazine HCl 25 MG/ML VIAL SLOW IVP PRN (16:09)
[2019-05-18] MEDS ORDERED: Ondansetron HCl/PF 4 MG/2 ML Vial IVP PRN (16:09)
[2019-05-18] MEDS ORDERED: Promethazine HCl 25 MG/ML VIAL IM PRN (16:09)
[2019-05-18] MEDS ORDERED: Diltiazem 125 MG in Sodium Chloride 0.9% 100 ML IVPB SCH ×2 (16:45→17:15)
--- NOTE | 2019-05-18 16:46 | OP ---
DATE OF PROCEDURE: 05/18/2019 OPERATION PERFORMED: Left femur intramedullary nail. PREOPERATIVE DIAGNOSIS: Left femur intertrochanteric fracture. POSTOPERATIVE DIAGNOSIS: Left femur intertrochanteric fracture. COMPLICATIONS: None. ESTIMATED BLOOD LOSS: 150 mL. KNOT BUMPER: Brandon Cooley PA-C. IMPLANT: Synthes 11-mm proximal femoral nail with helical blade and Crosslock screw. INDICATIONS: Ms. Valdes is an 83-year-old female, who fell. She fractured the left intertrochanteric femur. She was indicated for intramedullary nail fixation to restore anatomic alignment and promote healing. Risks were reviewed in detail. She elected to proceed with the operation. DESCRIPTION OF PROCEDURE: Ms. Valdes was identified in the preoperative holding area. Her correct extremity was marked. She was placed supine on the operative table. She was placed in traction after general anesthesia was placed. We then reduced the fracture using traction and rotation. We took intraoperative x-rays. At this point, we made a small incision over the proximal thigh after she was prepped and draped. We inserted a guidewire in the tip of the trochanter. We then inserted a guidewire distally. At this point, we overdrilled the guidewire. We then inserted our 11-mm femoral nail. We placed a central guidewire in the centered position of the femoral head using intraoperative x-rays. We then overdrilled the guidewire and placed our helical blade. This was locked in a dynamic position. Finally, we placed our distal Crosslock screw. We took final images. We thoroughly irrigated with copious lavage. We then removed the instrumentation and closed in layers. A sterile dressing was applied. The patient was taken to the recovery room at this point in good condition. Job ID: [id number]
[2019-05-18] MEDS: Hydrocortisone Sod Succ/PF 100 mg/2 ml Vial IVP SCH (18:10)
[2019-05-18 18:16] LABS: Hemoglobin 11.6 g/dL (12.0-16.0); Mean Corpuscular HGB CONC 32.4 g/dL (32.0-36.0); Mean Platelet Volume 8.1 fL (7.4-10.4); Platelet Count 274 thou/uL (130-400); RBC Distribution Width 16.3 % (11.5-14.5); Red Blood Cell (RBC) Count 3.52 mill/uL (4.20-5.40); White Blood Cell (WBC) Count 20.2 thou/uL (4.8-10.8)
[2019-05-18 18:32] LABS: Anion Gap 12 mmol/L (10-20); BUN (Urea Nitrogen) 12 mg/dL (9.8-20.1); Calc. Creatinine Clearance 64 mL/min (70-130); Calcium 8.3 mg/dL (7.8-10.44); Carbon Dioxide 27 mmol/L (23-31); Chloride 102 mmol/L (98-107); Estimated GFR-MDRD 82; Glucose 167 mg/dL (83-110); Magnesium 1.7 mg/dL (1.6-2.6); Phosphorus 2.4 mg/dL (2.3-4.7); Potassium 4.2 mmol/L (3.5-5.1); Sodium 137 mmol/L (136-145)
[2019-05-18 18:44] LABS: Anisocytosis SLIGHT = 6-15 cells (100X) (0-5/hpf); Band 1 % (5-11); Lymphocytes 2 % (21-51); MDiff Complete? YES; Macrocytosis SLIGHT = 6-15 cells (100X) (0-5/hpf); Monocytes 1 % (0-10); Neutrophil 92 % (42-75); Platelet Morphology Comment Appears Adequate; Polychromasia SLIGHT = 2-3 cells (100X) (0-2/hpf)
[2019-05-18] MEDS ORDERED: Magnesium 2 GM/50 ML 2 GM in Premix Bag 1 BAG IVPB SCH (20:00)
[2019-05-18] MEDS ORDERED: Potassium Phosphate 15 MMOL in Sodium Chloride 0.9% 250 ML 250 ML IVPB SCH (20:00)
[2019-05-18] MEDS ORDERED: FLU VACC TS2019-20(65YR UP)/PF 180 MCG/0.5 ML SYRINGE IM ONE (21:00)
[2019-05-18] MEDS ORDERED: Prevnar 13-Val Conj/PF 0.5 ML SYRINGE IM ONE (21:00)
[2019-05-19] MEDS: Hydrocortisone Sod Succ/PF 100 mg/2 ml Vial IVP SCH ×2 (00:33→05:37)
[2019-05-19] MEDS: Acetaminophen 325 MG TAB PO SCH ×5 (00:33→23:52)
[2019-05-19] MEDS: Clindamycin/D5W 900 MG in Premix Bag 1 BAG IVPB SCH ×2 (00:34→09:00)
--- NOTE | 2019-05-19 00:39 | PRG ---
DATE OF SERVICE: 05/18/2019 SUBJECTIVE: Patient was seen this evening during rounds. She was postop after a fixation of her left hip fracture. At the time of my evaluation, the patient was alert and awake with no signs of acute distress. She reported she was feeling much better than yesterday. She denies any chest pain or shortness of breath. Intraoperatively, the patient had an episode of atrial fibrillation, RVR, for which metoprolol was given, but rate control was not achieved. She was subsequently placed on a Cardizem drip of which we have continued this evening. OBJECTIVE: VITAL SIGNS: Temperature 97.6, pulse 113, respirations 18, oxygen saturation 91% on room air, blood pressure 127/86. GENERAL: Well-appearing elderly female, sitting up in bed with no signs of acute distress. PULMONARY: Equal chest rise and fall. Clear breath sounds bilaterally with slightly diminished at the bases. CARDIAC: Irregular rate and rhythm. No murmurs, gallops, or rubs. GASTROINTESTINAL: Abdomen is soft, nontender, nondistended. EXTREMITIES: 2+ pulses in all extremities. Gross motor and sensation are intact. Left-sided hip, postoperative hip bandages are clean, dry, and intact with no signs of infection. NEUROLOGIC: GCS is 14, 15, and at baseline. ASSESSMENT: 1. Status post mechanical fall from standing, on Coumadin. 2. Left hip fracture, status post repair. 3. Acute adrenal insufficiency, stable. 4. History of dementia, atrial fibrillation, CVA, and congestive heart failure. PLAN: We will continue her current diet and pain medications. Continue Cardizem drip overnight for rate control. Apply SCDs. Afternoon labs were completed. Magnesium and phosphorus were replaced as well. Continue hydrocortisone for acute adrenal insufficiency. We will discontinue IV fluids. The patient has a regular diet. She will start working with Physical and Occupational Therapy tomorrow and will likely need placement at acute rehab facility. I did discuss this with the patient and her family and they are on board. They are requesting a facility in the [facility]. Job ID: [id number]
[2019-05-19] MEDS: cefTRIAXone\\ROCEPHIN 1 GM in Sodium Chloride 0.9% 100 ML IVPB SCH ×3 (01:06→23:51)
[2019-05-19] MEDS: traMADol HCl 50 MG TAB PO PRN ×2 (05:54→13:13)
[2019-05-19 06:43] LABS: Hemoglobin 10.5 g/dL (12.0-16.0); Mean Corpuscular HGB CONC 33.2 g/dL (32.0-36.0); Mean Corpuscular Hemoglobin 32.6 pg (27.0-31.0); Mean Corpuscular Volume 98.1 fL (78.0-98.0); Mean Platelet Volume 8.7 fL (7.4-10.4); Platelet Count 231 thou/uL (130-400); RBC Distribution Width 16.2 % (11.5-14.5); Red Blood Cell (RBC) Count 3.23 mill/uL (4.20-5.40); White Blood Cell (WBC) Count 22.9 thou/uL (4.8-10.8)
[2019-05-19 07:01] LABS: Anion Gap 13 mmol/L (10-20); BUN (Urea Nitrogen) 10 mg/dL (9.8-20.1); Calc. Creatinine Clearance 67 mL/min (70-130); Calcium 7.9 mg/dL (7.8-10.44); Carbon Dioxide 24 mmol/L (23-31); Chloride 101 mmol/L (98-107); Estimated GFR-MDRD 86; Glucose 139 mg/dL (83-110); Phosphorus 1.8 mg/dL (2.3-4.7); Potassium 4.1 mmol/L (3.5-5.1); Sodium 134 mmol/L (136-145)
[2019-05-19 07:10] LABS: Band 8 % (5-11); Lymphocytes 2 % (21-51); MDiff Complete? YES; Metamyelocyte 2 % (0-0); Monocytes 1 % (0-10); Neutrophil 86 % (42-75); Ovalocytes SLIGHT = 2-5 cells (100X) (0-1/hpf); Platelet Morphology Comment Appears Adequate; Polychromasia SLIGHT = 2-3 cells (100X) (0-2/hpf); Reactive Lymphocytes 1 % (0-10); Schistocytes SLIGHT = 2-5 cells (100X) (0-1/hpf); Tear Drops SLIGHT = 2-5 cells (100X) (0-1/hpf)
[2019-05-19 07:12] LABS: INR-International Normal Ratio 1.3; Prothrombin Time 15.8 SEC (12.0-14.7)
[2019-05-19 07:13] LABS: PTT 21.2 SEC (22.9-36.1)
[2019-05-19] MEDS ORDERED: Sodium Phosphate 30 MMOL in Sodium Chloride 0.9% 250 ML 250 ML IVPB SCH ×2 (08:45→11:15)
[2019-05-19] MEDS: Famotidine/PF 20 mg/2ml Vial SLOW IVP SCH ×2 (09:00→20:34)
[2019-05-19] MEDS: FLUoxetine HCl 20 MG CAP PO SCH (09:00)
--- NOTE | 2019-05-19 09:55 | PRG ---
DATE OF SERVICE: 05/19/2019 SUBJECTIVE: Carol is an 83-year-old white female, postop day #1 from a left hip short trochanteric nail fixation for an intertrochanteric hip fracture. No complaints were reported by nursing staff, and she has been stable over the last evening. OBJECTIVE: VITAL SIGNS: Temperature 98.6, pulse 104, respiratory rate 18 and nonlabored, O2 saturation is 99% on 1 L nasal cannula. She has blood pressure 139/67. GENERAL: She arouses with examiner. She is difficult to understand either from expressive aphasia that appears to be due to prior metabolic encephalopathy. SKIN: Her incision is clean. No erythema. No strike through. IMPRESSION: Postop day #1, left hip intertrochanteric nail fixation. PLAN: Continue current care. Disposition, probably skilled facility. Job ID: [id number]
[2019-05-19 10:55] LABS: INR-International Normal Ratio 1.4; Prothrombin Time 17.3 SEC (12.0-14.7)
[2019-05-19] MEDS: Enoxaparin Sodium 60 MG/0.6 ML SYRINGE SC SCH ×2 (11:13→20:35)
--- NOTE | 2019-05-19 11:37 | PRG ---
DATE OF SERVICE: 05/19/2019 SUBJECTIVE: The patient remains on telemetry floor. She is status post ground level fall, in which she sustained a left hip fracture. The patient has known atrial fibrillation intraoperatively and continued postoperatively, the patient had a rapid ventricular response. She was started on a Cardizem drip intraoperatively and remains on one this morning. The patient has not worked with Physical Therapy or started her diet yet this morning. OBJECTIVE: VITAL SIGNS: Temperature is 98.6, heart rate 122, blood pressure 122/66, respirations 18, and oxygen saturation 92% on room air. GENERAL: The patient is resting comfortably in bed. She is awake and appears at her baseline in mentation. She will interact, but she is primarily non-communicative and this appears consistent with when I saw her yesterday. RESPIRATIONS: Clear to auscultation with moderate inspiratory and expiratory effort. HEART: Irregularly irregular rhythm, slightly tachy consistent with her atrial fibrillation with RVR. ABDOMEN: Soft, nontender with positive bowel sounds. EXTREMITIES: Neurovascularly intact x4. Postop dressing is clean, dry, and intact. LABORATORY FINDINGS: White blood cell count 22.9, hemoglobin 10.5, hematocrit 31.7, platelets 231. Sodium 134, potassium 4.1, chloride 101, CO2 of 24, BUN 10, creatinine 0.66, glucose 139, magnesium 2.0, and phosphorus 1.8. No radiographs to review this morning. ASSESSMENT AND PLAN: 1. Status post mechanical fall from standing on Coumadin. 2. Status post left hip intertrochanteric nail fixation postop day 1. 3. Adrenal insufficiency, acute, stable. 4. Atrial fibrillation with rapid ventricular response. 5. History of dementia, atrial fibrillation, CVA, and congestive heart failure. PLAN: Plan will be to continue supportive care. Begin physical and occupational therapy. Cardizem drip with a Cardiology consult placed. We will discontinue her hydrocortisone and her Rocephin at this time. Job ID: [id number]
[2019-05-19 11:54] LABS: Cardiac Risk 2.6 (Less than 4.5); Troponin I Less than 0.010 ng/mL (< 0.028)
[2019-05-19] MEDS ORDERED: Lorazepam 2 MG/ML VIAL SLOW IVP PRN (13:25)
[2019-05-19] MEDS ORDERED: Warfarin Sodium 3 MG TAB PO SCH (17:00)
--- NOTE | 2019-05-19 19:13 | CON ---
DATE OF CONSULTATION: REASON FOR CONSULTATION: Atrial fibrillation with RVR. HISTORY OF PRESENT ILLNESS: Ms. Valdes is an 83-year-old woman, who recently had a femur fracture. She has a history of chronic atrial fibrillation. She has been placed on IV Cardizem for rate control. PAST MEDICAL HISTORY: Previous CVA, hypertension, atrial fibrillation, UTI, and hyperlipidemia. SOCIAL HISTORY: No current tobacco or alcohol use. REVIEW OF SYSTEMS: Ten-point review of systems is reviewed and as above, otherwise negative. PHYSICAL EXAMINATION: GENERAL: The patient is a pleasant woman, who is in no acute distress. The patient appears her stated age. She has difficulty with speech. VITAL SIGNS: Blood pressure 105/60, pulse 117, respirations 20. NEUROLOGIC: The patient is alert and oriented x3 with no focal neurologic deficits. HEENT: Sclerae without icterus. Mouth has moist mucous membranes with normal pallor. NECK: No JVD. Carotid upstroke brisk. No bruits bilaterally. LUNGS: Clear to auscultation with unlabored respirations. BACK: No scoliosis or kyphosis. CARDIAC: Irregularly irregular and tachycardic. ABDOMEN: Soft, nontender, nondistended. No peritoneal signs present. No hepatosplenomegaly. No abnormal striae. EXTREMITIES: 2+ femoral and 2+ dorsalis pedis pulses. No cyanosis, clubbing, or edema. SKIN: No gross abnormalities. IMPRESSION: 1. Atrial fibrillation with rapid ventricular response. 2. Recent hip fracture, status post repair. RECOMMENDATIONS: She is currently on metoprolol 50 mg daily. We will change to Cardizem p.o. We will try and wean off IV medications and continue with p.o. medications for rate control. Continue Lovenox, and we will switch to Eliquis once she is close to discharge. Job ID: [id number]
--- NOTE | 2019-05-19 22:07 | PRG ---
DATE OF SERVICE: 05/19/2019 SUBJECTIVE: The patient was seen this evening during rounds. She was asleep and resting comfortably. Nursing reported the patient received Ativan during the day for agitation and delirium. Currently, still on Cardizem drip. The patient is seen by Cardiology, who also recommended p.o. Cardizem. OBJECTIVE: VITAL SIGNS: Temperature 98.3, pulse 90, respirations 18, oxygen saturation 97% on 1 L nasal cannula, and blood pressure 111/65. GENERAL: Well-appearing elderly female, lying in bed with no signs of acute distress. PULMONARY: Equal chest rise and fall. No signs of acute respiratory distress. ASSESSMENT: 1. Status post mechanical fall from standing on Coumadin. 2. Status post left intertrochanteric femur fracture, status post repair. 3. Acute adrenal insufficiency, improved. 4. Atrial fibrillation with rapid ventricular response, stable. 5. History of dementia, atrial fibrillation, cerebrovascular accident, and congestive heart failure. PLAN: Cardiology evaluated the patient and recommended discontinuing home metoprolol and starting the patient on oral Cardizem. They also did recommend discontinuing home Coumadin and placing the patient on Eliquis closer to discharge. We will continue therapeutic Lovenox in the meantime. Continue physical and occupational therapy as well as current diet and pain control. The patient will need placement at a rehab facility. Job ID: [id number]
[2019-05-20 05:03] LABS: INR-International Normal Ratio 1.3; Prothrombin Time 16.2 SEC (12.0-14.7)
[2019-05-20] MEDS: Acetaminophen 325 MG TAB PO SCH ×3 (05:20→18:18)
[2019-05-20 05:21] LABS: Anion Gap 9 mmol/L (10-20); BUN (Urea Nitrogen) 12 mg/dL (9.8-20.1); Calc. Creatinine Clearance 68 mL/min (70-130); Calcium 7.9 mg/dL (7.8-10.44); Carbon Dioxide 27 mmol/L (23-31); Chloride 102 mmol/L (98-107); Estimated GFR-MDRD 87; Glucose 103 mg/dL (83-110); Magnesium 1.9 mg/dL (1.6-2.6); Phosphorus 2.1 mg/dL (2.3-4.7); Potassium 3.4 mmol/L (3.5-5.1); Sodium 135 mmol/L (136-145)
[2019-05-20 05:45] LABS: Band 4 % (5-11); Hemoglobin 10.5 g/dL (12.0-16.0); Lymphocytes 7 % (21-51); MDiff Complete? YES; Mean Corpuscular HGB CONC 32.9 g/dL (32.0-36.0); Mean Corpuscular Hemoglobin 33.2 pg (27.0-31.0); Mean Platelet Volume 8.1 fL (7.4-10.4); Monocytes 2 % (0-10); Myelocyte 2 % (0-0); Neutrophil 85 % (42-75); Nucleated RBC 1 % (0); Platelet Count 275 thou/uL (130-400); RBC Distribution Width 16.6 % (11.5-14.5); Red Blood Cell (RBC) Count 3.15 mill/uL (4.20-5.40); White Blood Cell (WBC) Count 17.4 thou/uL (4.8-10.8)
[2019-05-20] MEDS: FLUoxetine HCl 20 MG CAP PO SCH (10:02)
[2019-05-20] MEDS: Ferrous Sulfate 325 MG TAB PO SCH (10:02)
[2019-05-20] MEDS: Famotidine/PF 20 mg/2ml Vial SLOW IVP SCH ×2 (10:02→20:27)
[2019-05-20] MEDS: Ascorbic Acid 500 mg Chewable Tablet PO SCH (10:02)
[2019-05-20] MEDS: Enoxaparin Sodium 60 MG/0.6 ML SYRINGE SC SCH ×2 (10:03→20:27)
--- NOTE | 2019-05-20 11:14 | PRG ---
DATE OF SERVICE: 05/20/2019 SUBJECTIVE: Ms. Valdes is doing well. No current complaints. Heart rate appears to be stable. She is on low-dose IV Cardizem. OBJECTIVE: VITAL SIGNS: Heart rate 93, blood pressure 115/59, temperature afebrile. LUNGS: Clear to auscultation. HEART: Irregularly irregular. ABDOMEN: Soft, nontender, nondistended. EXTREMITIES: No edema. IMPRESSION: 1. Chronic atrial fibrillation. 2. Recent hip fracture. RECOMMENDATIONS: 1. I have increased p.o. Cardizem and would switch to long-acting Cardizem once stable. 2. Discontinue IV Cardizem at noon. 3. Once heart rate is stable on p.o. medications, it would be okay to discontinue tele and follow up as an outpatient. Job ID: [id number]
[2019-05-20] MEDS: traMADol HCl 50 MG TAB PO PRN (19:32)
--- NOTE | 2019-05-20 21:41 | PRG ---
DATE OF SERVICE: 05/20/2019 SUBJECTIVE: The patient remains on the telemetry floor. She is status post ground level fall, in which she sustained a left hip fracture. She underwent open reduction and internal fixation. Intraoperatively, she went into atrial fibrillation with rapid ventricular response. She has had atrial fibrillation in the past. She was started on Cardizem drip and yesterday she was transitioned to p.o. Cardizem. This morning, she is tolerating a diet. Her pain is controlled. She has begun working with Physical and Occupational Therapy. OBJECTIVE: VITAL SIGNS: Temperature is 98.1, heart rate 93, blood pressure 115/59, respirations 17, oxygen saturation 98% on 2 L via nasal cannula. The patient is in atrial fibrillation with heart rate in the 90s. GENERAL: The patient is resting comfortably in bed. She is awake and interactive. The patient does have expressive aphasia, but she does her best to communicate. HEENT: Right forehead contusion, resolving. LUNGS: Clear to auscultation bilaterally. HEART: Irregular, consistent with her atrial fibrillation. ABDOMEN: Soft, nontender with active bowel sounds. EXTREMITIES: Neurovascularly intact x4. Postop dressing is clean, dry, and intact. LABORATORY FINDINGS: White blood cell count 17.4, hemoglobin 10.5, hematocrit 31.9, platelets 275. Sodium 135, potassium 3.4, chloride 102, CO2 of 27, BUN 12, creatinine 0.65, glucose 103, magnesium 1.9, and phosphorus 2.1. RADIOGRAPHS: There are no radiographs reviewed this morning. ASSESSMENT: 1. Status post ground level fall, on Coumadin. 2. Status post open reduction and internal fixation left hip fracture, postop day #2. 3. Adrenal insufficiency, acute, stable. 4. Atrial fibrillation with rapid ventricular response, rate controlled. 5. History of dementia, atrial fibrillation, cerebrovascular accident, and congestive heart failure. PLAN: Plan will be to continue supportive care. Encourage physical and occupational therapy. The patient is currently scheduled to transfer to swing [place] facility in [place] as long as she remains rate controlled on her oral Cardizem. Per Cardiology recommendations, she will also be discharged on Eliquis. Job ID: [id number]
--- NOTE | 2019-05-20 23:55 | PRG ---
DATE OF SERVICE: 05/20/2019 SUBJECTIVE: Elderly female was seen this evening during rounds. The patient requesting cold water and then reported she would like to go to sleep with no signs of acute distress. The patient's heart rate has continued to be in the 90s this afternoon. Cardizem drip was discontinued and her p.o. Cardizem dose was increased by Cardiology. OBJECTIVE: VITAL SIGNS: Temperature 98.4, pulse 97, respirations 16, oxygen saturation 94% on room air, blood pressure 133/63. GENERAL: Well-appearing elderly female, lying in bed, with no signs of acute distress. PULMONARY: Equal chest rise and fall. Clear breath sounds bilaterally. No signs of acute respiratory distress. ABDOMEN: Soft, nontender, nondistended. EXTREMITIES: 2+ pulses in all extremities. No significant swelling noted. Gross motor and sensation are intact. ASSESSMENT: 1. Status post mechanical fall, on Coumadin. 2. Left hip fracture, status post repair. 3. Acute adrenal insufficiency, stable. 4. Atrial fibrillation with rapid ventricular response, improved. 5. History of dementia, atrial fibrillation, cerebrovascular accident, and congestive heart failure. PLAN: The patient is continued to be worked up by Cardiology. They increased her p.o. Cardizem today. They have reported that once the patient remains rate controlled, she does not need to continue tele. We will continue tele overnight. Cardizem drip has been discontinued. We will continue therapeutic Lovenox at this time and start the patient on Eliquis before discharge per the recommendations of Cardiology. Continue physical and occupational therapy as well as supportive care. The patient has been approved for placement at [facility]. The patient will be ready for discharge once cardiac rate control is established. Job ID: [id number]
[2019-05-21] MEDS: Acetaminophen 325 MG TAB PO SCH ×4 (00:33→19:14)
[2019-05-21] MEDS: cefTRIAXone\\ROCEPHIN 1 GM in Sodium Chloride 0.9% 100 ML IVPB SCH (00:33)
[2019-05-21] MEDS: traMADol HCl 50 MG TAB PO PRN ×2 (01:00→09:27)
[2019-05-21 08:08] LABS: Anion Gap 10 mmol/L (10-20); BUN (Urea Nitrogen) 10 mg/dL (9.8-20.1); Calc. Creatinine Clearance 79 mL/min (70-130); Calcium 7.8 mg/dL (7.8-10.44); Carbon Dioxide 27 mmol/L (23-31); Chloride 99 mmol/L (98-107); Estimated GFR-MDRD Greater than 90; Glucose 118 mg/dL (83-110); Magnesium 1.8 mg/dL (1.6-2.6); Potassium 3.4 mmol/L (3.5-5.1); Sodium 133 mmol/L (136-145)
[2019-05-21 08:14] LABS: Phosphorus 1.9 mg/dL (2.3-4.7)
[2019-05-21] MEDS ORDERED: Potassium Phosphate 30 MMOL in Sodium Chloride 0.9% 500 ML IVPB SCH (08:30)
[2019-05-21] MEDS ORDERED: Magnesium 2 GM/50 ML 2 GM in Premix Bag 1 BAG IVPB SCH (08:30)
[2019-05-21 08:56] LABS: Band 2 % (5-11); Eosinophils 2 % (0-10); Hemoglobin 9.3 g/dL (12.0-16.0); Hypersemented Neutrophil SLIGHT; Lymphocytes 10 % (21-51); MDiff Complete? YES; Macrocytosis SLIGHT = 6-15 cells (100X) (0-5/hpf); Mean Corpuscular HGB CONC 32.5 g/dL (32.0-36.0); Mean Corpuscular Hemoglobin 32.5 pg (27.0-31.0); Mean Corpuscular Volume 99.8 fL (78.0-98.0); Mean Platelet Volume 7.8 fL (7.4-10.4); Metamyelocyte 3 % (0-0); Monocytes 2 % (0-10); Neutrophil 80 % (42-75); Platelet Count 277 thou/uL (130-400); Polychromasia SLIGHT = 2-3 cells (100X) (0-2/hpf); RBC Distribution Width 16.5 % (11.5-14.5); Red Blood Cell (RBC) Count 2.87 mill/uL (4.20-5.40); White Blood Cell (WBC) Count 17.3 thou/uL (4.8-10.8)
[2019-05-21] MEDS: FLUoxetine HCl 20 MG CAP PO SCH (09:29)
[2019-05-21] MEDS: Ferrous Sulfate 325 MG TAB PO SCH (09:30)
[2019-05-21] MEDS: Famotidine/PF 20 mg/2ml Vial SLOW IVP SCH ×2 (09:31→21:54)
[2019-05-21] MEDS: Ascorbic Acid 500 mg Chewable Tablet PO SCH (09:31)
[2019-05-21] MEDS: Enoxaparin Sodium 60 MG/0.6 ML SYRINGE SC SCH ×2 (09:32→21:54)
--- NOTE | 2019-05-21 15:46 | PRG ---
DATE OF SERVICE: 05/21/2019 SUBJECTIVE: The patient remains on the telemetry floor. The patient is status post ground level fall, postop day #3 status post open reduction and internal fixation. 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 The patient is tolerating a diet and pain seems to be well controlled at this time. OBJECTIVE: VITAL SIGNS: Temperature 97.4, pulse 93, respirations 16, SpO2 of 95% on room air, blood pressure 138/63. GENERAL: The patient resting comfortably, awakes easily and interactive. The patient does have expressive aphasia. LUNGS: Mild coarse rales with expiration, respirations even and nonlabored, no respiratory distress. CARDIAC: Irregular rate, irregular rhythm, positive systolic murmur. ABDOMEN: Soft, nontender, nondistended. EXTREMITIES: Moves all extremities. Neurovascularly intact x4. Postop dressing is clean, dry, and intact, no pedal edema. LABORATORY DATA: WBC 17.3, RBC 2.87, hemoglobin 9.3, hematocrit 28.7. Sodium 133, potassium 3.4, chloride 99, BUN 10, creatinine 0.56, estimated GFR greater than 90, glucose 118, calcium 7.8, phosphorus 1.9, magnesium 1.8. IMPRESSION: 1. Status post ground level fall, on Coumadin. 2. Status post open reduction and internal fixation, left hip fracture, postop day #3. 3. Adrenal insufficiency, acute, stable. 4. Atrial fibrillation, rate controlled. 5. History of dementia, atrial fibrillation, cerebrovascular accident and congestive heart failure. 6. Hypokalemia, hypophosphatemia. PLAN: Continue supportive care. Continue to encourage physical and occupational therapy. Cardiology plans to increase the patient's Cardizem dose. We will continue to hold patient's Coumadin and continue therapeutic Lovenox for now. The patient has been accepted to [facility] swing bed for continued physical therapy. Cardiology states the patient is able to be moved to swing bed tomorrow from their standpoint. We will replace electrolytes. We will repeat labs in the morning with a BNP and a chest x-ray as the patient has some coarse rales, but no respiratory distress. Job ID: [id number]
--- NOTE | 2019-05-22 00:54 | PRG ---
DATE OF SERVICE: 05/21/2019 SUBJECTIVE: The patient was seen this evening, lying in bed, resting comfortably, and asleep with no signs of acute distress. Nursing reported no acute events. OBJECTIVE: VITAL SIGNS: Temperature 97.5, pulse 100, respirations 19, oxygen saturation 94% on 2 L nasal cannula, and blood pressure 116/57. GENERAL: Elderly female, lying in bed with no signs of acute distress. PULMONARY: Equal chest rise and fall. No signs of acute respiratory distress. ASSESSMENT: 1. Status post mechanical fall from standing, on Coumadin. 2. Left intertrochanteric femur fracture, status post repair. 3. Acute adrenal insufficiency, resolved. 4. Atrial fibrillation, rapid ventricular response, now rate controlled. 5. History of dementia, expressive aphasia, atrial fibrillation, cerebrovascular accident, and congestive heart failure. 6. Acute hyponatremia, worsening. PLAN: We will continue the patient's current diet and pain regimen. Cardiology did change her to long-acting Cardizem today. If the patient remains rate controlled, [facility] and started on Eliquis due to atrial fibrillation. At that time, we will discontinue therapeutic Lovenox. She has been accepted into [facility] swing bed and is only pending. Rate controlled with cardiac medications. Finalization before discharge. Job ID: [id number]
[2019-05-22] MEDS: Acetaminophen 325 MG TAB PO SCH ×4 (01:17→18:27)
[2019-05-22] MEDS: cefTRIAXone\\ROCEPHIN 1 GM in Sodium Chloride 0.9% 100 ML IVPB SCH (01:17)
[2019-05-22 06:49] LABS: Anion Gap 11 mmol/L (10-20); BUN (Urea Nitrogen) 11 mg/dL (9.8-20.1); Calc. Creatinine Clearance 76 mL/min (70-130); Calcium 7.9 mg/dL (7.8-10.44); Carbon Dioxide 29 mmol/L (23-31); Chloride 97 mmol/L (98-107); Estimated GFR-MDRD Greater than 90; Glucose 110 mg/dL (83-110); Potassium 3.6 mmol/L (3.5-5.1); Sodium 133 mmol/L (136-145)
[2019-05-22] MEDS: Ferrous Sulfate 325 MG TAB PO SCH (08:28)
[2019-05-22] MEDS: Ascorbic Acid 500 mg Chewable Tablet PO SCH (08:28)
[2019-05-22] MEDS: Diltiazem HCl CD 300 mg Capsule PO SCH (08:28)
[2019-05-22] MEDS: Famotidine/PF 20 mg/2ml Vial SLOW IVP SCH (08:29)
[2019-05-22] MEDS: Enoxaparin Sodium 60 MG/0.6 ML SYRINGE SC SCH ×2 (08:29→20:10)
[2019-05-22] MEDS: FLUoxetine HCl 20 MG CAP PO SCH (08:30)
[2019-05-22] MEDS: traMADol HCl 50 MG TAB PO PRN ×2 (08:30→20:09)
--- NOTE | 2019-05-22 08:37 | RAD ---
Chest one view HISTORY: Abnormal breath sounds. Dyspnea. COMPARISON: 05/17/2019. FINDINGS: Cardiac silhouette is magnified and enlarged. Pulmonary vasculature slightly more engorged than on the prior study with interval increase in widespread interstitial thickening. Mediastinum is midline with aortic calcification. Partial obscuration of the hemidiaphragms. Metallic clips over the left axilla. IMPRESSION: Worsening CHF. Atherosclerosis.
[2019-05-22] MEDS ORDERED: Furosemide 20 MG/2 ML VIAL SLOW IVP SCH (10:15)
[2019-05-22] MEDS ORDERED: Potassium Phosphate 30 MMOL in Sodium Chloride 0.9% 500 ML IVPB SCH (11:45)
--- NOTE | 2019-05-22 12:15 | PRG ---
DATE OF SERVICE: 05/22/2019 SUBJECTIVE: The patient remains on the telemetry floor. The patient is awake, alert, and attempting to communicate. The patient did eat all of her breakfast this morning. The patient is postop day #4, status post open reduction and internal fixation of her left intertrochanteric femur fracture. The patient's heart rate remained in the upper 90s overnight, but early this morning, the patient's heart rate started to increase. The patient seems mildly anxious at this time and states she wants to go home. When asked if she is having any pain, the patient is unable to communicate that she is or is not having pain. OBJECTIVE: VITAL SIGNS: Temperature 99.0, pulse 129, respirations 20, SpO2 of 95% on 2 L nasal cannula, blood pressure 135/82. GENERAL: Elderly female, mildly anxious, awake, alert. The patient does have expressive aphasia. LUNGS: Scattered coarse breath sounds bilateral. Respirations are even and nonlabored. No acute respiratory distress. CARDIAC: Irregular rate, irregular rhythm, tachycardic, positive systolic murmur. ABDOMEN: Soft, nontender, nondistended. EXTREMITIES: Moves all extremities. Neurovascularly intact x4. Postop dressing is clean, dry, and intact to left hip. No pedal edema. LABORATORY DATA: Sodium 133, potassium 3.6, chloride 97, BUN 11, creatinine 0.58, estimated GFR greater than 90, glucose 110, calcium 7.9, BNP 98.6. Mag and phos pending. DIAGNOSTIC DATA: Chest x-ray, impression, cardiac silhouette is magnified and enlarged. Pulmonary vasculature slightly more engorged than on prior study with interval increase in widespread interstitial thickening. Mediastinum is midline with aortic calcification. Partial obscuration of both hemidiaphragms. Impression worsening CHF. IMPRESSION: 1. Status post ground level fall, on Coumadin. 2. Status post open reduction and internal fixation of left intertrochanteric femur fracture, postop day #4. 3. Adrenal insufficiency, stable. 4. Atrial fibrillation. 5. History of dementia, atrial fibrillation, cerebrovascular accident, congestive heart failure. PLAN: Continue supportive care. Continue to encourage physical and occupational therapy. Cardiology recommends Cardizem IV as the patient's heart rate has increased. Cardiology also recommends changing medications back to her home Coumadin and metoprolol. We will continue to monitor the patient's heart rate. If improved, the patient should be able to be discharged to [facility] tomorrow. We will give a small dose of IV Lasix today due to the patient's coarse breath sounds, chest x-ray showing increased signs of congestive heart failure and she is requiring oxygen. Job ID: [id number] MTDD
[2019-05-22 12:54] LABS: Magnesium 1.9 mg/dL (1.6-2.6)
[2019-05-22 12:56] LABS: Band 1 % (5-11); Eosinophils 1 % (0-10); Hemoglobin 10.7 g/dL (12.0-16.0); Hypersemented Neutrophil SLIGHT; Lymphocytes 15 % (21-51); MDiff Complete? YES; Macrocytosis SLIGHT = 6-15 cells (100X) (0-5/hpf); Mean Corpuscular HGB CONC 32.9 g/dL (32.0-36.0); Mean Corpuscular Hemoglobin 32.9 pg (27.0-31.0); Mean Platelet Volume 7.7 fL (7.4-10.4); Monocytes 2 % (0-10); Neutrophil 81 % (42-75); Nucleated RBC 1 % (0); Platelet Count 323 thou/uL (130-400); Polychromasia SLIGHT = 2-3 cells (100X) (0-2/hpf); RBC Distribution Width 16.9 % (11.5-14.5); Red Blood Cell (RBC) Count 3.24 mill/uL (4.20-5.40); White Blood Cell (WBC) Count 20.6 thou/uL (4.8-10.8)
[2019-05-22] MEDS ORDERED: Warfarin Sodium 3 MG TAB PO SCH (17:00)
[2019-05-22] MEDS ORDERED: Famotidine 20 MG TAB PO SCH (21:00)
--- NOTE | 2019-05-22 22:31 | PRG ---
DATE OF SERVICE: 05/22/2019 SUBJECTIVE: The patient was seen this evening. She was lying in bed and resting comfortably on her left side. Nursing reported no acute events. Dr. Ralph of Cardiology did see the patient today and gave the patient Cardizem and metoprolol for rate control. He also did recommend Coumadin instead of the previously recommended Eliquis by Dr. Marquez. We are now currently bridging the patient with Lovenox and Coumadin. OBJECTIVE: VITAL SIGNS: Temperature 98.0, pulse 106, respirations 18, oxygen saturation 96% on room air, blood pressure 140/70. GENERAL: A well-appearing elderly female, lying in bed with no signs of acute distress. PULMONARY: Equal chest rise and fall. No signs of acute respiratory distress. ASSESSMENT: 1. Status post mechanical fall, on Coumadin. 2. Left intertrochanteric femur fracture, status post repair. 3. Acute adrenal insufficiency, stable. 4. History of atrial fibrillation with rapid ventricular response, still working on rate control. 5. History of dementia, expressive aphasia, cerebrovascular accident, and congestive heart failure. 6. Persistent leukocytosis, currently being treated with Rocephin. PLAN: Continue current pain control and p.o. medications. We will continue to follow the recommendations of Cardiology for rate control and anticoagulation due to the patient's uncontrolled atrial fibrillation during this hospitalization. Continue physical and occupational therapy. She has been accepted to [facility] bed and will be ready for discharge whenever okayed by Cardiology. Continue to monitor INR since she is restarted on Coumadin. Job ID: [id number]
[2019-05-23] MEDS: cefTRIAXone\\ROCEPHIN 1 GM in Sodium Chloride 0.9% 100 ML IVPB SCH (01:44)
[2019-05-23] MEDS: Acetaminophen 325 MG TAB PO SCH ×3 (01:45→12:02)
[2019-05-23] MEDS: traMADol HCl 50 MG TAB PO PRN (05:42)
[2019-05-23 06:04] LABS: INR-International Normal Ratio 1.2; Prothrombin Time 15.4 SEC (12.0-14.7)
[2019-05-23 06:23] LABS: Anion Gap 12 mmol/L (10-20); BUN (Urea Nitrogen) 8 mg/dL (9.8-20.1); Calc. Creatinine Clearance 71 mL/min (70-130); Calcium 8.6 mg/dL (7.8-10.44); Carbon Dioxide 29 mmol/L (23-31); Chloride 100 mmol/L (98-107); Estimated GFR-MDRD Greater than 90; Glucose 123 mg/dL (83-110); Magnesium 1.9 mg/dL (1.6-2.6); Phosphorus 2.8 mg/dL (2.3-4.7); Potassium 4.2 mmol/L (3.5-5.1); Sodium 137 mmol/L (136-145)
[2019-05-23 07:54] LABS: Hemoglobin 11.2 g/dL (12.0-16.0); Mean Corpuscular HGB CONC 32.6 g/dL (32.0-36.0); Mean Corpuscular Hemoglobin 33.3 pg (27.0-31.0); Mean Platelet Volume 8.3 fL (7.4-10.4); Platelet Count 342 thou/uL (130-400); RBC Distribution Width 17.1 % (11.5-14.5); Red Blood Cell (RBC) Count 3.36 mill/uL (4.20-5.40); White Blood Cell (WBC) Count 20.1 thou/uL (4.8-10.8)
[2019-05-23 07:56] LABS: Band 3 % (5-11); Eosinophils 1 % (0-10); Lymphocytes 9 % (21-51); MDiff Complete? YES; Metamyelocyte 4 % (0-0); Monocytes 3 % (0-10); Myelocyte 7 % (0-0); Neutrophil 70 % (42-75); Nucleated RBC 2 % (0); Platelet Morphology Comment Appears Adequate; Polychromasia SLIGHT = 2-3 cells (100X) (0-2/hpf); Reactive Lymphocytes 2 % (0-10); Toxic Granulation SLIGHT; Vacuoles MODERATE
[2019-05-23] MEDS: Ascorbic Acid 500 mg Chewable Tablet PO SCH (08:43)
[2019-05-23] MEDS: Ferrous Sulfate 325 MG TAB PO SCH (08:43)
[2019-05-23] MEDS: Diltiazem HCl CD 300 mg Capsule PO SCH (08:43)
[2019-05-23] MEDS: Enoxaparin Sodium 60 MG/0.6 ML SYRINGE SC SCH (08:44)
[2019-05-23] MEDS: FLUoxetine HCl 20 MG CAP PO SCH (08:46)
[2019-05-23 09:19] LABS: PTT 44.2 SEC (22.9-36.1)
[2019-05-23 09:27] LABS: INR-International Normal Ratio 1.4; Prothrombin Time 17.2 SEC (12.0-14.7)
[2019-05-23] MEDS ORDERED: Senokot S 8.6-50 MG TAB PO SCH ×2 (12:00→21:00)
[2019-05-23] MEDS ORDERED: Polyethylene Glycol 3350 17 GM Packet PO SCH (12:00)
--- NOTE | 2019-05-23 12:50 | DIS ---
DATE OF ADMISSION: 05/17/2019 DATE OF DISCHARGE: 05/23/2019 RESIDENT: Beck Luo MD. ATTENDING: Santos Link DO CONSULTS: 1. Dr. Earl Reinoso, Orthopedic Surgery. 2. Dr. Brandon Marquez, Cardiology. PROCEDURES: 1. Brain CT on 05/17/2019, demonstrating chronic type findings, stable. No acute traumatic injury. 2. Cervical spine CT on 05/17/2019, demonstrating no acute osseous abnormalities. Prominent degenerative changes of the cervical spine. Atherosclerosis. 3. Hip x-ray on 05/17/2019, demonstrating comminuted fracture involving the intertrochanteric region of the left proximal femur with associated foreshortening. There is medial displacement of the fracture fragment involving the lesser trochanter. 4. Chest x-ray on 05/17/2019, demonstrating pulmonary vascular congestion more pronounced than on the most recent exam from October of 2018. 5. Hip x-ray on 05/18/2019, psotop demonstrating interval reduction and fixation of the intertrochanteric fracture since the previous day's exam. The displaced lesser trochanteric fragment is unchanged. 6. Left femur intramedullary nailing on 05/18/2019, by Dr. Reinoso. PRIMARY DIAGNOSES: 1. Status post mechanical fall from standing, on Coumadin. 2. Left intertrochanteric femur fracture, status post open reduction and internal fixation. 3. Acute adrenal insufficiency, resolved. SECONDARY DIAGNOSES: 1. Atrial fibrillation with rapid ventricular response, now rate controlled, on anticoagulation. 2. History of dementia. 3. Expressive aphasia, status post cerebrovascular. 4. Chronic atrial fibrillation. 5. Congestive heart failure. 6. Hyponatremia, now resolved. DISCHARGE MEDICATIONS: 1. Lovenox 60 mg subcu at 0900 hours and 2100 hours to continue until warfarin therapeutic. 2. Diltiazem 300 mg p.o. daily. 3. Prozac 20 mg p.o. daily. 4. Metoprolol succinate 100 mg p.o. daily. 5. Warfarin 3 mg p.o. daily. 6. Celebrex 100 mg p.o. daily. 7. Tramadol 100 mg p.o. q6h prn. 8. Acetaminophen 650mg p.o. q4h 9. Flexeril 5mg p.o. TID prn 10. Zofran 4mg p.o. q6h prn 11. Miralax 17g p.o. daily 12. Sennokot K 1 tab p.o. twice daily Discontinued medications: 1. metoprolol succinate 50 mg p.o. daily. 2. Tramadol 50-100mg p.o. daily HISTORY OF PRESENT ILLNESS AND HOSPITAL COURSE: The patient is a pleasant 83-year-old female with history of dyslipidemia, CVA with expressive aphasia, chronic AFib on anticoagulation, who presented to the emergency department after having a ground-level fall. She states she was trying to the bathroom and slipped and fell. The patient lives at home with her elderly , who is legally blind. In the ED, she was noted to have a left hip fracture. Orthopedic Surgery was consulted, who recommended taken to the OR for open reduction and internal fixation once medically stable. The patient chronically takes Coumadin and this was reversed with 5 mg of vitamin K at the time of admission. The patient was made n.p.o. at midnight. A recheck of her INR preop was 2.0, thus she was taken to the OR in a stable condition for open reduction and internal fixation. The patient tolerated the procedure well and returned to the floor in stable condition. The patient did have multiple episodes of AFib with RVR, initially treated with diltiazem. Cardiology was consulted, who reviewed her medication and noted that she recently took Toprol 50 mg for rate control. The patient was transitioned to p.o. diltiazem as well as an increase of her metoprolol to 100 mg daily. The patient then remained rate control AFib with a heart rate of around 100. The patient remained hemodynamically stable throughout her hospitalization. Postoperatively , the patient was initially placed on Lovenox for VTE prophylaxis as well as therapeutic anticoagulation for chronic AFib. The patient was then continued on Lovenox while restarted on warfarin to bridge back to her home dose. At the time of discharge, the patient's INR was 1.4. She will be continued on Lovenox and her 3 mg home dose of warfarin until INR is therapeutic, at which time, the Lovenox can be discontinued. The patient was also initially started on Rocephin for an elevated white count at the time of admission, however, did not have any acute signs and symptoms of infection, remained afebrile, had a clean urine and thus the Rocephin was discontinued. The patient was tolerating a diet well. Pain well controlled. She was started on a bowel regimen to promote bowel movements. She was voiding without difficulty. PT and OT worked with the patient, who recommended continued physical therapy. Case management discussed with family, who wish for swing bed at [facility] for continued therapy. At the time of discharge, electrolytes were stable. The patient was doing well and in good spirits and eager for discharge to [facility] for continued therapy. Discharge plan was discussed with the patient at bedside, who was in agreement and understanding of the discharge plan and appropriate followup. DISPOSITION: Stable. DISCHARGE INSTRUCTIONS: 1. Location: Swing bed at [facility]. 2. Diet: Regular, Coumadin prudent. 3. Activity: Orthopedic limitations. 4. Followup: The patient should follow up with her primary care physician within 7 days of discharge from [facility]. The patient will also need followup with Orthopedic Surgery and Cardiology as directed. Job ID: [id number] [facility] CENTERKuldip
--- NOTE | 2019-05-23 14:20 | PQF ---
xDATE: 05-23-19 ATTN: [facility]. [facility]I [facility] Please exercise your independent, professional judgment in responding to the clarification form. Clinical indicators are provided on the bottom of this form for your review Please check appropriate box(s): HEART FAILURE: A. ACUITY [ ] Acute [x ] Acute on Chronic [ ] Chronic B. TYPE [ ] Systolic / HFrEF [ ] Diastolic / HFpEF [ x ] Combined Systolic / Diastolic [ ] Other diagnosis [ ] Unable to determine In addition, please specify: Present on Admission (POA): [ ] Yes [ ] No [ ] Unable to determine For continuity of documentation, please document condition throughout progress notes and discharge summary. Thank You. CLINICAL INDICATORS - SIGNS / SYMPTOMS / LABS / RESULTS AND LOCATION IN EMR: H&P 05-17-19: AP CHEST XRAY SHOWS PULMONARY VASCULAR CONGESTION/EDEMA, IS MORE PRONOUNCED THAN ON THE MOST RECENT EXAM FROM OCTOBER. MILD CONGESTIVE HEART FAILURE. THE PATIENT WILL RECEIVE ONE DOSE OF LASIX. CXR 05-17-19: IMPRESSION: PULMONARY VASCULAR CONGESTION/EDEMA IS MORE PRONOUNCED THAN ON THE MOST RECENT EXAM FROM OCTOBER 2018. BNP: 05-17-19: 206.4 05-18-19: 233.7 RISKS FACTORS / RESULTS AND LOCATION IN EMR: H&P 05-17-19: HX DYSLIPIDEMIA, BREAST CANCER, CVA, HTN, A FIB, METABOLIC ENCEPHALOPATHY, FREQ. UTIS TREATMENTS / RESULTS AND LOCATION IN EMR: H&P: 05-17-19: CURRENT MEDS: METOPROLOL H&P 05-17-19: THE PATIENT WILL RECEIVE ONE DOSE OF LASIX. H&P: 05-17-19: OXYGEN SATURATION 98% ON 3L VIA NASAL CANNULA (This form is maintained as a part of the permanent medical record) 2014 [employer] All Rights Reserved JUAN MANUEL [email or web address] Office: [phone] [facility]
[2019-05-23 15:45] VITALS: BP 139/79; TEMP 97.7
[2019-05-23] MEDS ORDERED: Warfarin Sodium 3 MG TAB PO SCH (17:00)
[2019-05-24] MEDS ORDERED: Polyethylene Glycol 3350 17 GM Packet PO SCH (09:00)
== END 2019-05-23 16:30 | DRG 480 ==
LOC: ERS 11:57 → ERHOLD 16:36 → 2NO 19:50
PROVIDERS: ADMIT Surgery; ATTEND Surgery
PROC: 0QS706Z Reposition Left Upper Femur with Intramedullary Internal Fixation Device, Open Approach (ICD-10-PCS; principal; 2019-05-18)
DX: S72.142A Displaced intertrochanteric fracture of left femur, initial encounter for closed fracture (principal); I50.43 Acute on chronic combined systolic (congestive) and diastolic (congestive) heart failure; E27.40 Unspecified adrenocortical insufficiency; I48.20 Chronic atrial fibrillation, unspecified; E87.1 Hypo-osmolality and hyponatremia; W01.0XXA Fall on same level from slipping, tripping and stumbling without subsequent striking against object, initial encounter; E78.5 Hyperlipidemia, unspecified; E78.00 Pure hypercholesterolemia, unspecified; I25.10 Atherosclerotic heart disease of native coronary artery without angina pectoris; I11.0 Hypertensive heart disease with heart failure; D72.829 Elevated white blood cell count, unspecified; E87.6 Hypokalemia; E83.42 Hypomagnesemia; F03.90 Unspecified dementia, unspecified severity, without behavioral disturbance, psychotic disturbance, mood disturbance, and anxiety; Z85.3 Personal history of malignant neoplasm of breast; Y92.091 Bathroom in other non-institutional residence as the place of occurrence of the external cause; Z88.0 Allergy status to penicillin; Z88.2 Allergy status to sulfonamides; Z88.8 Allergy status to other drugs, medicaments and biological substances; Z79.01 Long term (current) use of anticoagulants; Z90.11 Acquired absence of right breast and nipple; I69.320 Aphasia following cerebral infarction
CPT/HCPCS: 36415; 51701; 70450; 71045; 72125; 76000; 80048; 80053; 80061; 81003; 82533; 82550; 82607; 83735; 83880; 84100; 84484; 85007; 85025; 85027; 85610; 85730; 90471; 90662; 90670; 93005; 96361; 96374; 96375; 96376; A4353; C1713; G0008; G0009; G0390; J0131; J0696; J1650; J1720; J1940; J2060; J2270; J3010; J3430; J3475; J3490; J7050; S0028